=== PATIENT | female | born 2000 | race Caucasian/White ===

== ENCOUNTER → 2022-05-12 13:41 | Outpatient (BNVA) | payer MEDICAID, SELFPAY | PROVIDERS: Visit Provider Emergency Medicine | DX: S60.032A Contusion of left middle finger without damage to nail, initial encounter (principal); W23.0XXA Caught, crushed, jammed, or pinched between moving objects, initial encounter | CPT/HCPCS: 73130 ==

== ENCOUNTER 2022-06-06 19:55 | Emergency (ER) | payer MEDICAID, SELFPAY ==
[2022-06-06 20:00] VITALS: BMI 29.6
[2022-06-06 20:04] VITALS: BP 147/84; PULSE 81; RESP 16; TEMP 36.6; O2SAT 98
--- NOTE | 2022-06-06 20:12 | ECG_ITS ---
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
--- NOTE | 2022-06-06 20:38 | XRR_ITS ---
PROCEDURE INFORMATION: Exam: XR Left Hand Exam date and time: 06/06/2022 8:53 PM Age: 22 years old Clinical indication: Injury or trauma; Fall; Blunt trauma (contusions or hematomas); Hand; Left TECHNIQUE: Imaging protocol: Radiologic exam of the Left hand. Views: 3 or more views. COMPARISON: No relevant prior studies available. FINDINGS: Bones/joints: Osseous structures are intact. Negative for fracture. Joint spaces are preserved. Soft tissues: Normal. XR/XR hand LT min 3V* [id number] IMPRESSION: No acute findings.
--- NOTE | 2022-06-06 20:38 | XRR_ITS ---
PROCEDURE INFORMATION: Exam: XR Chest Exam date and time: 06/06/2022 8:48 PM Age: 22 years old Clinical indication: Angina; Additional info: Cp TECHNIQUE: Imaging protocol: Radiologic exam of the chest. Views: 1 view. COMPARISON: No relevant prior studies available. FINDINGS: Lungs: Unremarkable. No consolidation. Pleural spaces: Unremarkable. No pleural effusion. No pneumothorax. Heart/Mediastinum: Unremarkable. No cardiomegaly. Bones/joints: Unremarkable. XR/XR chest 1V portable [id number] IMPRESSION: No acute findings.
[2022-06-06 20:43] VITALS: BP 152/98; PULSE 72; RESP 16; O2SAT 99
[2022-06-06] MEDS: naproxen 500 mg Tablet PO (20:49)
--- NOTE | 2022-06-06 21:07 | W.ED.CHESTPA ---
HPI - Chest Pain General: Chief Complaint: Chest Pain Stated Complaint: left side chest & arm + throw up blood Time Seen by Provider: 06/06/22 20:06 Source: patient Mode of arrival: ambulatory Limitations: no limitations History of Present Illness: 22-year-old female who states that she has been having left-sided chest pain over the last day. States she had a cough last 2 days the pain in her left chest is sharp in nature states it is worse with movement of her arm and with palpation is improved with rest. She denies any radiation of her pain denies any fever denies any shortness of breath. Denies any vomiting or diarrhea. Associated symptoms: Deny abdominal pain, dyspnea, fever(s), nausea or vomiting Review of Systems Const: Denies: fever(s), chills, body aches or change in appetite Eyes: Denies: blurry vision or eye discomfort ENMT: Denies: throat pain or dental pain Card: Reports: chest pain Resp: Denies: dyspnea GI: Denies: abdominal pain, nausea, vomiting or diarrhea : Denies: dysuria Musc: Denies: neck pain or back pain Skin/Breast: Denies: rash Neuro: Denies: headache(s) Psych: Denies: depression Petey/Lymph: Denies: easy bruising All/Imm: Denies: urticaria PFSH ED PFSH: Medical History (Updated 06/06/22 @ 21:11 by Caryn Nicole MD) No pertinent past medical history Social History Smoking and tobacco status: never smoked Physical Exam Const: COMMON NORMALS: no acute distress, patient oriented x3 and healthy appearing HENMT: COMMON NORMALS: normocephalic and atraumatic HEAD & SCALP: normocephalic and atraumatic Eye: COMMON NORMALS: Equal, round and reactive pupils present and EOMs intact bilaterally PUPIL: Yes Equal, round and reactive pupils present Neck/C-Spine: COMMON NORMALS: full ROM and supple Chest: COMMONS NORMALS: normal inspection of the chest OTHER: Point tender over left chest wall reproduces her pain Resp: COMMON NORMALS: normal respiratory effort, No retractions, No use of accessory muscles and clear to auscultation bilaterally AUSCULTATION: clear to auscultation bilaterally Cardio: COMMON NORMALS: regular rate, regular rhythm and No murmurs present (Cardio) RATE: regular rate RHYTHM: regular rhythm GI: COMMON NORMALS: Normal to inspection, nondistended, normoactive bowel sounds present, Soft to palpation, non-tender and no masses PALPATION: Yes Soft to palpation Extremity: COMMON NORMALS: normal to inspection and full ROM Neuro: COMMON NORMALS: patient oriented x3, moves all extremities and no focal motor deficits Psych: COMMON NORMALS: mental status grossly normal, Normal thought process present and cooperative THOUGHT PROCESS: Normal thought process present Skin: COMMON NORMALS: no rashes or lesions noted and no wounds GENERAL SKIN EXAM: no rashes or lesions noted Course Vital Signs: Vital signs: Vital Signs Temperature 97.9 F 06/06/22 20:04 Pulse Rate 72 06/06/22 20:43 Respiratory Rate 16 06/06/22 20:43 Blood Pressure 152/98 06/06/22 20:43 Pulse Oximetry 99 06/06/22 20:43 Oxygen Delivery Me thod 06/06/22 20:43 MDM - Chest Pain Medical Decision Making Patient presents here with chest pain likely muscle skeletal she is point tender on her left chest wall her EKG and x-ray are both normal. She has no signs of acute coronary syndrome or pulm embolism we will place her on Naprosyn she is to follow-up with PCP and return if worsening. EKG Data EKG 1: I personally reviewed and interpreted this EKG as follows: EKG interpretation date: 06/06/22 EKG interpretation time: 20:12 Interpretation: nsr hr [address] or t wave abnormalities qrs 87 qtc 398 Discharge Plan Discharge Patient Disposition: Home Clinical Impression: Chest pain Qualifiers: Chest pain type: unspecified Qualified Code(s): R07.9 - Chest pain, unspecified Condition: Stable Prescriptions: New naproxen [Naprosyn] 500 mg tablet 500 mg PO BID PRN (Reason: pain) Qty: 20 0RF No Action omeprazole 20 mg capsule,delayed release(DR/EC) 20 mg PO DAILY Discharge Orders: Discharge ED (Routine); Ordered 06/06/22 Ordered By: Caryn Nicole Discharge Diet: Advance as tolerated Discharge Activity: Resume usual activity Patient Instructions: Chest Wall Pain (ED) Coding Level of Care Code ED Electrical Controls Technician for Chg Sidney
[2022-06-06 21:17] VITALS: BP 152/98; PULSE 82; RESP 18; O2SAT 98
== END 2022-06-06 21:18 | disposition home or self-care (01) ==
PROVIDERS: Emergency Provider Emergency Medicine
DX: R07.9 Chest pain, unspecified (principal)
CPT/HCPCS: 71045; 73130; 93005; 93010; 99284

== ENCOUNTER 2022-07-27 06:45 | Outpatient (CLI) | payer MEDICAID, SELFPAY ==
--- NOTE | 2022-07-27 | US_ITS ---
WS: [id number] Complete ABDOMINAL ULTRASOUND HISTORY: ABD PAIN WITH N/V COMPARISON: None available. Liver: 14.7 cm in length. Liver is normal size and echogenicity with no mass or intrahepatic dilatati on. Portal Vein: Normal hepatopetal flow with monophasic waveform. Gallbladder: Normally distended with no gallstones, wall thickening or pericholecystic fluid. Gallbladder wall thickness: 0.2 cm. Pancreas: Not well visualized due to bowel gas. CBD: 0.3 cm. Right kidney: 10.3 cm x 3.8 cm x 3.6 cm. No mass, cortical thickening or hydronephrosis. Left kidney: 10.9 cm x 4.4 cm x 5.0 cm. No mass, cortical thickening or hydronephrosis. Spleen: Normal size and echogenicity. Abdominal aorta and IVC are within normal limits. No ascites. US/US abdomen complete* [id number] IMPRESSION: 1. Pancreas is not well visualized. Otherwise the abdomen ultrasound is negati ve. 2. Normal gallbladder.
== END 2022-07-27 06:46 | disposition home or self-care (01) ==
LOC: RAD 06:46
PROVIDERS: Visit Provider Family Medicine
DX: R10.9 Unspecified abdominal pain (principal); R11.2 Nausea with vomiting, unspecified
CPT/HCPCS: 76700

== ENCOUNTER 2025-08-18 23:16 | Emergency (ER) | payer MEDICAID, SELFPAY ==
[2025-08-18 23:17] VITALS: BP 142/94; PULSE 78; RESP 17; O2SAT 100; BMI 33.0
--- NOTE | 2025-08-18 23:19 | ED_ITS ---
HPI - General Adult 2 General: Chief complaint: Chest Pain Stated complaint: Chest Pain Time Seen by Provider: 08/18/25 23:18 History of Present Illness: 25yo F w/cc of upper abdomen pain for 2 hours prior to coming to the emergency department while eating dinner. She was eating [employer]. She states it is retrosternal, epigastric, sharp, worsened w/deep breathing. She states pain is also in her LUE. It is unclear if pain is exertional. She feels a little nauseated but has not vomited. She reports RUQ/epigastric abdominal pain as well, states she has a h/o gallbladder disease. Patient has not had a fever and denies sore throat, runny nose, cough, hemoptysis, syncope or lower extremity swelling. She does not have a history of DVT/PE. Patient denies dysuria or hematuria. She states she is approximately 7 weeks gestation and currently denies any low abdomen pain/cramping. She states she had slight amount of bleeding earlier today but that has resolved. She's not had diarrhea or blood in stool. She does not take any medications. She does not have a h/o cardiac disease. Related Data Home Medications ?Medication ?Instructions ?Recorded ?Confirmed omeprazole 20 mg capsule,delayed 20 mg PO DAILY 06/06/22 release Previous Rx's ?Medication ?Instructions ?Recorded naproxen 500 mg tablet (Naprosyn) 500 mg PO BID PRN pa in #20 tabs 06/06/22 cephalexin 500 mg capsule 500 mg PO BID 5 days #10 cap s 08/19/25 Allergies Allergy/AdvReac Type Severity Reaction Status Date / Time fluoxetine (From Prozac) Allergy ALGY-Difficulty Verified 08/18/25 23:24 Breathing Penicillins Allergy Unconscious Verified 08/18/25 23:24 [facility] ED 2 [facility]: Medical History (Updated 08/19/25 @ 03:55 by Violeta Taylor MD) No pertinent past medical history Social History Smoking and tobacco/nicotine status: never used tobacco/nicotine Physical Exam 2 Narrative: EXAM NARRATIVE: Vital signs were reviewed. Patient is alert and oriented. Patient is breathing comfortably, no increased WOB or accessory muscle use. SpO2 is above 95% on RA. Patient has clear lungs b/l, no rhonchi, wheezing or crackles. No hypotension or tachycardia. Abdomen is soft, nondistended but tender in the RLQ. +Penn's sign. I am able to appreciate intrauterine w/ HR. Patient is moving all extremities, no deformity or gross injury. No lower extremity edema or asymmetry. Course 2 Vital Signs: Vital signs: Vital Signs Pulse Rate 87 08/19/25 03:30 Respiratory Rate 17 08/18/25 23:17 Blood Pressure 130/82 08/19/25 03:30 Pulse Oximetry 96 08/19/25 03:30 Oxygen Delivery Me thod Room Air 08/19/25 03:30 MDM - General Adult Medical Decision Making 25yo F at appox 7wks gestation w/cc of epigastric/RUQ abd pain/chest pain that started after eating [employer] this evening. She does not have any risk factors for heart disease. Differential diagnosis includes, but is not limited to, pancreatitis, cholecystitis, gastroenteritis, appendicitis, urinary tract infection, pyelonephritis, nephrolithiasis, pneumonia, PE, viral upper respiratory infection ,ACS, other. On initial exam, patient is hemodynamically stable and nontoxic appearing. Patient was evaluated with CBC, CMP, lipase, troponin, D dimer, UA, US gallbladder. Patient was treated for pain with Tylenol, for nausea with IV Reglan. Patient has minimally elevated white blood cell count. She is not anemic. She has a normal troponin with a negative delta and a normal D-dimer. She has adequate kidney function, normal LFTs and normal lipase. UA is consistent with a urinary tract infection. US shows: IMPRESSION: 1. Cholelithiasis with suggested stone impacted in the gallbladder neck. Reportedly positive sonographic Penn's sign. Gallbladder wall measures between 3 and 5 mm (indeterminate for positional artifact). No pericholecystic fluid. Findings are equivocal for acute cholecystitis given imaging appearance. Correlate with patient history/physical exam and laboratory values. If clinically indicated, surgical consultation can be obtained. 2. Findings suggestive of mild diffuse hepatic steatosis. Correlate with LFTs. I presentation is consistent with cholelithiasis and biliary colic and urinary tract infection in first trimester . On reexamination, patient is quite comfortable. Her UTI was treated with Keflex. She was briefly observed due to reported allergy but did not develop an adverse reaction. Patient will require outpatient surgical consultation. She was advised to see his surgeon as soon as possible on an outpatient basis. At this time, she is appropriate for outpatient management and discharge. She was counseled on strict return precautions, advised on supportive care measures at home and discharged in stable condition. Lab Data 08/18/25 23:08 08/18/25 23:08 Radiology Impressions Gallbladder Ultrasound 08/19/25 23:38 IMPRESSION: Unremarkable portal venous spectral waveform with hepatopetal blood flow. No portal venous thrombus. IMPRESSION: 1. Cholelithiasis with suggested stone impacted in the gallbladder neck. Reportedly positive sonographic Penn's sign. Gallbladder wall measures between 3 and 5 mm (indeterminate for positional artifact). No pericholecystic fluid. Findings are equivocal for acute cholecystitis given imaging appearance. Correlate with patient history/physical exam and laboratory values. If clinically indicated, surgical consultation can be obtained. 2. Findings suggestive of mild diffuse hepatic steatosis. Correlate with LFTs. Laboratory Results WBC 14.14 10^3/uL (3.29-11.43) H 08/18/25 23:08 RBC 4.49 10^6/uL (3.85-5.65) 08/18/25 23:08 Hgb 13.60 g/dL (11.27-16.99) 08/18/25 23:08 Hct 40.1 % (36-47) 08/18/25 23:08 MCV 89.3 fl (85-98) 08/18/25 23:08 MCH 30.3 pg (27-33) 08/18/25 23:08 MCHC 33.9 g/dL (30-55) 08/18/25 23:08 RDW 12.3 % (12.1-15.1) 08/18/25 23:08 Plt Count 306 10^3/cmm (157-399) 08/18/25 23:08 MPV 10.1 fL (7.4-10.4) 08/18/25 23:08 Neut % (Auto) 72.7 % 08/18/25 23:08 Lymph % (Auto) 21.5 % 08/18/25 23:08 [place] % (Auto) 4.2 % 08/18/25 23:08 Eos % (Auto) 0.7 % 08/18/25 23:08 Baso % (Auto) 0.4 % 08/18/25 23:08 Neut # (Auto) 10.29 10^3/uL (1.8-7.7) H 08/18/25 23:08 Lymph # (Auto) 3.0 10^3/uL (0.8-4.8) 08/18/25 23:08 [place] # (Auto) 0.6 10^3/uL (0.2-0.9) 08/18/25 23:08 Eos # (Auto) 0.1 10^3/uL (0.0-0.8) 08/18/25 23:08 Baso # (Auto) 0.1 10^3/uL (0.0-0.1) 08/18/25 23:08 Nucleated RBC % (auto) 0 % 08/18/25 23:08 Nucleated RBCs # 0.0 /100WBC 08/18/25 23:08 D-Dimer 0.56 ug/mLFEU (0-0.59) 08/18/25 23:08 Sodium 137 mmol/L (136-145) 08/18/25 23:08 Potassium 3.7 mmol/L (3.5-5.1) 08/18/25 23:08 Chloride 102 mmol/L (98-107) 08/18/25 23:08 Carbon Dioxide 21 mmol/L (22-29) L 08/18/25 23:08 Anion Gap 17.7 (5-19) 08/18/25 23:08 BUN 8 mg/dL (6-20) 08/18/25 23:08 Creatinine 0.5 mg/dL (0.5-0.9) 08/18/25 23:08 GFR Calculation 148.0 mL/min (90-130) H 08/18/25 23:08 Glucose 105 mg/dL (65-115) 08/18/25 23:08 Calculated Osmolality 283 mOsm/kg (285-295) L 08/18/25 23:08 Calcium 9.3 mg/dL (8.5-10.5) 08/18/25 23:08 Total Bilirubin 0.2 mg/dL (0.15-1.2) 08/18/25 23:08 AST 15 U/L (0-32) 08/18/25 23:08 ALT 15 U/L (0-33) 08/18/25 23:08 Alkaline Phosphatase 92 U/L (35-105) 08/18/25 23:08 Troponin T Baseline < 6 ng/L (0-10) 08/18/25 23:08 Troponin T 120 Minute < 6.0 ng/L (0-10) 08/19/25 01:16 Delta Troponin T 0 ABS# (0-10) 08/19/25 01:16 Total Protein 7.0 g/dL (6.6-8.7) 08/18/25 23:08 Albumin 4.7 g/dL (3.5-5.2) 08/18/25 23:08 Globulin 2.3 g/dL (1.3-4.6) 08/18/25 23:08 Lipase 47 U/L (13-60) 08/18/25 23:08 Urine Color Yellow (Yellow) 08/19/25 00:36 Urine Appearance Cloudy (CLEAR) A 08/19/25 00:36 Urine pH 5.5 (5-7) 08/19/25 00:36 Ur Specific [place] 1.033 (1.005-1.030) H 08/19/25 00:36 Urine Protein Trace (Negative) A 08/19/25 00:36 Urine Glucose (UA) Negative (Normal) 08/19/25 00:36 Urine Ketones Trace (Negative) 08/19/25 00:36 Urine Blood Negative (Negative) 08/19/25 00:36 Urine Nitrate Negative (Negative) 08/19/25 00:36 Urine Bilirubin Negative (Negative) 08/19/25 00:36 Urine Urobilinogen 1.0 mg/dL (Negative) 08/19/25 00:36 Ur Leukocyte Esterase Negative (Negative) 08/19/25 00:36 Urine RBC 0-2 /hpf (0-2) 08/19/25 00:36 Urine WBC 21-50 /hpf (0-5) H 08/19/25 00:36 Ur Squamous Epith Cells 0-5 /hpf (0-5) 08/19/25 00:36 Calcium Oxalate Crystal 15-25 /hpf H 08/19/25 00:36 Amorphous Sediment Not Reportable 08/19/25 00:36 Urine Bacteria 1+ /hpf (NONE) H 08/19/25 00:36 Hyaline Casts 0.81 /lpf 08/19/25 00:36 All radiology interpretation(s) finalized by discharge EKG Data EKG 1: Interpretation: Normal sinus rhythm, heart rate of 68, normal axis, normal intervals, no evidence of ST segment elevation. Computer generated interpretation: Gallbladder Ultrasound 08/19/25 23:38 IMPRESSION: Unremarkable portal venous spectral waveform with hepatopetal blood flow. No portal venous thrombus. IMPRESSION: 1. Cholelithiasis with suggested stone impacted in the gallbladder neck. Reportedly positive sonographic Penn's sign. Gallbladder wall measures between 3 and 5 mm (indeterminate for positional artifact). No pericholecystic fluid. Findings are equivocal for acute cholecystitis given imaging appearance. Correlate with patient history/physical exam and laboratory values. If clinically indicated, surgical consultation can be obtained. 2. Findings suggestive of mild diffuse hepatic steatosis. Correlate with LFTs. EKG 2: Interpretation: Normal sinus rhythm with a heart rate of 61, normal axis, normal intervals, no evidence of ST segment elevation, ischemic change or evolution from previous EKG. Computer generated interpretation: Gallbladder Ultrasound 08/19/25 23:38 IMPRESSION: Unremarkable portal venous spectral waveform with hepatopetal blood flow. No portal venous thrombus. IMPRESSION: 1. Cholelithiasis with suggested stone impacted in the gallbladder neck. Reportedly positive sonographic Penn's sign. Gallbladder wall measures between 3 and 5 mm (indeterminate for positional artifact). No pericholecystic fluid. Findings are equivocal for acute cholecystitis given imaging appearance. Correlate with patient history/physical exam and laboratory values. If clinically indicated, surgical consultation can be obtained. 2. Findings suggestive of mild diffuse hepatic steatosis. Correlate with LFTs. Discharge Plan Discharge Patient Disposition: Home Clinical Impression: Biliary colic Cholelithiasis Qualifiers: Cholelithiasis location: gallbladder Cholecystitis presence: without cholecystitis Biliary obstruction: without biliary obstruction Qualified Code(s): K80.20 - Calculus of gallbladder without cholecystitis without obstruction Urinary tract infection Qualifiers: Urinary tract infection type: acute cystitis Hematuria presence: without hematuria Qualified Code(s): N30.00 - Acute cystitis without hematuria Qualifiers: Weeks of gestation: less than 8 weeks Qualified Code(s): Z3A.01 - Less than 8 weeks gestation of Condition: Stable Prescriptions: New cephalexin 500 mg capsule 500 mg PO BID 5 Days Qty: 10 0RF No Action omeprazole 20 mg capsule,delayed release(DR/EC) 20 mg PO DAILY Naprosyn 500 mg tablet 500 mg PO BID PRN (Reason: pain) Qty: 20 0RF Discharge Orders: Discharge ED (Routine); Ordered 08/19/25 Ordered By: Violeta Taylor Patient Instructions: Abdominal Pain (ED), Opioid Safety, Pain Management, Patient Portal & Dali Instructions Activity Restrictions/Additional Instructions: For pain, you may take 500 to 1000 mg of Tylenol every 6-8 hours. For nausea and vomiting during , you may take 25 mg of doxylamine and 25 mg of vitamin B6, both medications you can get [id number], in combination at bedtime. Please start your antibiotics as prescribed for urinary tract infection. If you are not taking it already, please take vitamin to prevent neural tube defects. Continue to monitor your condition very closely at home. If your condition worsens or if new concerns arise, please return immediately to the emergency department. Specifically, if you experience a fever, severe pain in your upper abdomen or right side of your abdomen, you have severe nausea and vomiting and are unable to keep food and drink down, you are unable to tolerate pain at home, please return immediately to the emergency department. Please follow-up with the surgeon on an outpatient basis to discuss having gallbladder surgery. Print Language: Solomon Islander Coding Level of Care Code ED Commercial Construction Superintendent for Tamar Little
[2025-08-18 23:23] VITALS: BP 132/90; PULSE 69; O2SAT 100
--- NOTE | 2025-08-18 23:38 | ECG_ITS ---
[facility] Test Date: 2025-08-19 Pat Name: Gianna Archer Department: Room: Gender: Female Invoice Classification Clerk: : 2000 Requested By: Violeta Taylor Order Number: [id number] Timi MD: Shubahm Cormier M.D. Measurements Intervals [place] Rate: 61 P: 36 MA: 157 QRS: 33 QRSD: 85 T: 23 QT: 394 QTc: 400 Interpretive Statements SINUS RHYTHM NONSPECIFIC T-WAVE ABNORMALITY Compared to ECG 06/06/2022 20:12:21 T-wave abnormality now present Electronically Signed On 08-19-2025 21:56:11 MUSHROOM GROWING SUPERVISOR by Shubham Cormier M.D. [id number]
--- OUTSIDE RECORDS SUMMARY | 2025-08-18 23:38 | XMS_ITS | Encounter Summary ---
Author Organization [facility] Address [address] [place] [address] Care Team Providers Care Instructor Decorating Name Role Phone Unavailable Primary Care Provider Unavailabl e Encounter Details Date Type Department Care Team (Latest Contact Info) Description 10/28/1999 Outpatient Historical [facility] Jamari Thomason MD [address] [place] [address] Unspecified otitis media (Primary Dx); Attention to dressings and sutures Social History Tobacco Use Types Packs/Day Years Used Date Smoking Tobacco: Never Assessed Comments Unknown Sex and Gender Information Value Date Recorded Sex Assigned at Not on file 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
--- OUTSIDE RECORDS SUMMARY | 2025-08-18 23:38 | XMS_ITS | Encounter Summary ---
Author Organization [facility] Address [address] [place] [address] Care Team Providers Care Ship'S Cook Name Role Phone Unavailable Primary Care Provider Unavailabl e Encounter Details Date Type Department Care Team (Latest Contact Info) Description 12/27/2001 Outpatient Historical [facility] Jamari Thomason MD [address] [place] [address] ACUTE URI NOS (Primary Dx); VIRAL EXANTHEMATA NOS Social History Tobacco Use Types Packs/Day Years Used Date Smoking Tobacco: Never Assessed Comments Unknown Sex and Gender Information Value Date Recorded Sex Assigned at Not on file 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
--- OUTSIDE RECORDS SUMMARY | 2025-08-18 23:38 | XMS_ITS | Encounter Summary ---
Author Organization [facility] Address [address] [place] [address] Care Team Providers Care Prorate Clerk Name Role Phone Unavailable Primary Care Provider Unavailabl e Encounter Details Date Type Department Care Team (Latest Contact Info) Description 07/04/2000 Outpatient Historical [facility] Jamari Thomason MD [address] [place] [address] Bronchitis, not specified as acute or chronic (Primary Dx) Social History Tobacco Use Types Packs/Day Years Used Date Smoking Tobacco: Never Assessed Comments Unknown Sex and Gender Information Value Date Recorded Sex Assigned at Not on file 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
--- OUTSIDE RECORDS SUMMARY | 2025-08-18 23:38 | XMS_ITS | Encounter Summary ---
Author Organization [facility] Address [address] [place] [address] Care Team Providers Care Parish Nurse Name Role Phone Unavailable Primary Care Provider Unavailabl e Encounter Details Date Type Department Care Team (Latest Contact Info) Description 02/04/2002 Outpatient Historical [facility] Jamari Thomason MD [address] [place] [address] DYSURIA (Primary Dx); FOREIGN BODY FOOT & TOE; URIN TRACT INFECTION NOS Social History Tobacco Use Types Packs/Day Years Used Date Smoking Tobacco: Never Assessed Comments Unknown Sex and Gender Information Value Date Recorded Sex Assigned at Not on file 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
--- OUTSIDE RECORDS SUMMARY | 2025-08-18 23:38 | XMS_ITS | Encounter Summary ---
Author Organization [employer] [facility] Address [address] [place] [address] Care Team Providers Care Mail Truck Driver Name Role Phone Unavailable Primary Care Provider Unavailabl e Encounter Details Date Type Department Care Team (Latest Contact Info) Description 12/26/2000 Outpatient Historical HIS [facility] Jamari Thomason MD [address] [place] [address] Dermatitis due to food taken internally (Primary Dx) Social History Tobacco Use Types Packs/Day Years Used Date Smoking Tobacco: Never Assessed Comments Unknown Sex and Gender Information Value Date Recorded Sex Assigned at Not on file Legal Sex Female 6:00 AM MEDICAL ASSISTANT PRN Gender Identity Not on file Sexual Orientation Not on file documented as of this encounter Plan of Treatment Not on file documented as of this encounter Visit Diagnoses Diagnosis Dermatitis due to food taken internally- Primary documented in this encounter
--- OUTSIDE RECORDS SUMMARY | 2025-08-18 23:38 | XMS_ITS | Encounter Summary ---
Author Organization [employer] [facility] Address [address] [place] [address] Care Team Providers Care Load Checker Name Role Phone Unavailable Primary Care Provider Unavailabl e Encounter Details Date Type Department Care Team (Latest Contact Info) Description 06/28/1999 Outpatient Historical HIS [facility] Yahir Clements, Johan Scott MD [address] [place] [id number] Bronchitis, not specified as acute or chronic (Primary Dx) Social History Tobacco Use Types Packs/Day Years Used Date Smoking Tobacco: Never Assessed Comments Unknown Sex and Gender Information Value Date Recorded Sex Assigned at Not on file Legal Sex Female 6:00 AM CORN COOKER Gender Identity Not on file Sexual Orientation Not on file documented as of this encounter Plan of Treatment Not on file documented as of this encounter Visit Diagnoses Diagnosis Bronchitis, not specified as acute or chronic- Primary documented in this encounter
--- OUTSIDE RECORDS SUMMARY | 2025-08-18 23:38 | XMS_ITS | Clinical Summary ---
Author Organization [facility] Address [address] [facility] Attn: Epic Prelude ADT [place] [address] Care Team Providers Care Subsurface Augmentee Elint Operator Name Role Phone Unavailable Primary Care Provider Unavailabl e Immunizations Immunization Administration Dates Next Due (ADACEL/BOOSTRIX)(10 YR UP) TDAP VACCINE, 0.5ML, IM 05/24/2010 (M-M-R II/PRIORIX)(12 MO UP) MEASLES, MUMPS AND RUBELLA VIRUS VACCINE, 0.5 ML IM/SUBCUT 10/25/2002,07/03/2000 (VARIVAX)(12 MOS UP)VARICELL A VIRUS VACCINE (PF) 0.5 ML, SUB CUT 01/03/2003 Dt Dtp Dtap Vaccine 10/25/2002, 0,03/25/1999,1998,1998,1998 HIB, Unspecified Formulation 07/03/2000, 03/25/1999,1998,1997,1998 Hepatitis A Vaccine 10/25/2002,03/25/1999 Hepatitis B Vaccine 03/25/1999,1998,1997 IPV/OPV 07/03/2000, 9,1998,1997 Social History Tobacco Use Types Packs/Day Years Used Date Smoking Tobacco: Never Assessed Comments Unknown Sex and Gender Information Value Date Recorded Sex Assigned at Not on file Legal Sex Female 6:00 AM JUNIOR ACCOUNTANT BOOKKEEPER Gender Identity Not on file Sexual Orientation Not on file Plan of Treatment Health Maintenance Due Date Last Done Comments CERVICAL CANCER SCREENING 2019 HPV/Cotest (21-29) 2019 PAP SMEAR 2019 DTAP/TDAP/TD VACCINES (7 - T d or Tdap) 05/24/2020 05/24/2010, 10/25/2002, 07/03/2000, Additional history exists INFLUENZA VACCINE (#1) 2025 HPV VACCINES (1 - 3-dose SCD M series) 2025 HEPATITIS B VACCINES Completed 03/25/1999, 1998, 1998
--- OUTSIDE RECORDS SUMMARY | 2025-08-18 23:38 | XMS_ITS | Encounter Summary ---
Author Organization [facility] Address [address] [place] [address] Care Team Providers Care Frame Bander Name Role Phone Unavailable Primary Care Provider Unavailabl e Encounter Details Date Type Department Care Team (Latest Contact Info) Description 01/09/2001 Outpatient Historical HIS [facility] Jamari Thomason MD [address] [place] [address] Urinary tract infection, site not specified (Primary Dx) Social History Tobacco Use Types Packs/Day Years Used Date Smoking Tobacco: Never Assessed Comments Unknown Sex and Gender Information Value Date Recorded Sex Assigned at Not on file Legal Sex Female 6:00 AM EMPLOYMENT PROGRAM REPRESENTATIVE Gender Identity Not on file Sexual Orientation Not on file documented as of this encounter Plan of Treatment Not on file documented as of this encounter Visit Diagnoses Diagnosis Urinary tract infection, site not specified- Primary documented in this encounter
--- OUTSIDE RECORDS SUMMARY | 2025-08-18 23:38 | XMS_ITS | Encounter Summary ---
Author Organization [facility] Address [address] [place] [address] Care Team Providers Care Debone Supervisor Name Role Phone Unavailable Primary Care Provider Unavailabl e Encounter Details Date Type Department Care Team (Latest Contact Info) Description 12/06/1999 Outpatient Historical HIS [facility] Jamari Thomason MD [address] [place] [address] Acute upper respiratory infections of unspecified site (Primary Dx); Other and unspecified noninfectious gastroenteritis and colitis(558.9) Social History Tobacco Use Types Packs/Day Years Used Date Smoking Tobacco: Never Assessed Comments Unknown Sex and Gender Information Value Date Recorded Sex Assigned at Not on file Legal Sex Female 6:00 AM LOSS PREVENTION LEAD Gender Identity Not on file Sexual Orientation Not on file documented as of this encounter Plan of Treatment Not on file documented as of this encounter Visit Diagnoses Diagnosis Acute upper respiratory infections of unspecified site- Primary Other and unspecified noninfectious gastroenteritis and colitis(558.9) Other and unspecified noninfectious gastroenteritis and colitis documented in this encounter
--- OUTSIDE RECORDS SUMMARY | 2025-08-18 23:38 | XMS_ITS | Encounter Summary ---
Author Organization [facility] Address [address] [place] [address] Care Team Providers Care Fuel Agent Name Role Phone Unavailable Primary Care Provider Unavailabl e Encounter Details Date Type Department Care Team (Latest Contact Info) Description 01/01/2001 Outpatient Historical HIS [facility] Jamari Thomason MD [address] [place] [address] Other and unspecified noninfectious gastroenteritis and colitis(558.9) (Primary Dx) Social History Tobacco Use Types Packs/Day Years Used Date Smoking Tobacco: Never Assessed Comments Unknown Sex and Gender Information Value Date Recorded Sex Assigned at Not on file Legal Sex Female 6:00 AM FITTING ROOM ATTENDANT Gender Identity Not on file Sexual Orientation Not on file documented as of this encounter Plan of Treatment Not on file documented as of this encounter Visit Diagnoses Diagnosis Other and unspecified noninfectious gastroenteritis and colitis(558.9)- Primary Other and unspecified noninfectious gastroenteritis and colitis documented in this encounter
--- OUTSIDE RECORDS SUMMARY | 2025-08-18 23:38 | XMS_ITS | Encounter Summary ---
Author Organization [employer] [facility] Address [address] [place] [address] Care Team Providers Care Secretary Bookkeeper Name Role Phone Unavailable Primary Care Provider Unavailabl e Encounter Details Date Type Department Care Team (Latest Contact Info) Description 05/11/1999 Outpatient Historical HIS [facility] Jamari Thomason MD [address] [place] [address] Other, multiple, and unspecified sites, insect bite, nonvenomous, without mention of infection(919.4) (Primary Dx) Social History Tobacco Use Types Packs/Day Years Used Date Smoking Tobacco: Never Assessed Comments Unknown Sex and Gender Information Value Date Recorded Sex Assigned at Not on file Legal Sex Female 6:00 AM CONTINUOUS DRIER OPERATOR Gender Identity Not on file Sexual Orientation Not on file documented as of this encounter Plan of Treatment Not on file documented as of this encounter Visit Diagnoses Diagnosis Other, multiple, and unspecified sites, insect bite, nonvenomous, without mention of infection(919.4)- Primary Other, multiple, and unspecified sites, insect bite, nonvenomous, without mention of infection documented in this encounter
--- OUTSIDE RECORDS SUMMARY | 2025-08-18 23:38 | XMS_ITS | Encounter Summary ---
Author Organization [facility] Address [address] [place] [address] Care Team Providers Care Hogshead Builder Name Role Phone Unavailable Primary Care Provider Unavailabl e Encounter Details Date Type Department Care Team (Latest Contact Info) Description 08/06/1999 Outpatient Historical HIS [facility] Jamari Thomason MD [address] [place] [address] Unspecified otitis media (Primary Dx); Acute upper respiratory infections of unspecified site Social History Tobacco Use Types Packs/Day Years Used Date Smoking Tobacco: Never Assessed Comments Unknown Sex and Gender Information Value Date Recorded Sex Assigned at Not on file Legal Sex Female 6:00 AM GUN SEALING MACHINE OPERATOR Gender Identity Not on file Sexual Orientation Not on file documented as of this encounter Plan of Treatment Not on file documented as of this encounter Visit Diagnoses Diagnosis Unspecified otitis media- Primary Acute upper respiratory infections of unspecified site documented in this encounter
--- OUTSIDE RECORDS SUMMARY | 2025-08-18 23:38 | XMS_ITS | Encounter Summary ---
Author Organization [facility] Address [address] [place] [address] Care Team Providers Care Neuropsychology Director Name Role Phone Unavailable Primary Care Provider Unavailabl e Encounter Details Date Type Department Care Team (Latest Contact Info) Description 02/11/2002 Outpatient Historical HIS [facility] Jamari Thomason MD [address] [place] [address] NONINFEC GASTROENTERIT NEC (Primary Dx) Social History Tobacco Use Types Packs/Day Years Used Date Smoking Tobacco: Never Assessed Comments Unknown Sex and Gender Information Value Date Recorded Sex Assigned at Not on file Legal Sex Female 6:00 AM SUPERVISOR FILES Gender Identity Not on file Sexual Orientation Not on file documented as of this encounter Plan of Treatment Not on file documented as of this encounter Visit Diagnoses Diagnosis Other and unspecified noninfectious gastroenteritis and colitis(558.9)- Primary Other and unspecified noninfectious gastroenteritis and colitis documented in this encounter
--- OUTSIDE RECORDS SUMMARY | 2025-08-18 23:38 | XMS_ITS | Encounter Summary ---
Author Organization [facility] [employer] [facility] Address [address] [facility] Attn: Epic Prel[place] [address] Care Team Providers Care Traveling Electrician Name Role Phone Unavailable Primary Care Provider Unavailabl e Encounter Details Date Type Department Care Team (Late st Contact Info) Description 02/04/2002 Outpatient Historical Jamari Thomason MD [address] [place] [address] Social History Tobacco Use Types Packs/Day Years Used Date Smoking Tobacco: Never Assessed Comments Unknown Sex and Gender Information Value Date Recorded Sex Assigned at Not on file Legal Sex Female 6:00 AM INTERNET SALES ASSOCIATE Gender Identity Not on file Sexual Orientation Not on file documented as of this encounter Plan of Treatment Not on file documented as of this encounter Visit Diagnoses Not on filedocumented in this encounter
--- OUTSIDE RECORDS SUMMARY | 2025-08-18 23:39 | XMS_ITS | Encounter Summary ---
Author Organization [employer] [facility] Address [address] [place] [address] Care Team Providers Care Clothes Model Name Role Phone Unavailable Primary Care Provider Unavailabl e Encounter Details Date Type Department Care Team (Latest Contact Info) Description 1998 Outpatient Historical HIS [facility] Jamari Thomason MD [address] [place] [address] Bronchitis, not specified as acute or chronic (Primary Dx) Social History Tobacco Use Types Packs/Day Years Used Date Smoking Tobacco: Never Assessed Comments Unknown Sex and Gender Information Value Date Recorded Sex Assigned at Not on file Legal Sex Female 6:00 AM HOG CONFINEMENT SYSTEM MANAGER Gender Identity Not on file Sexual Orientation Not on file documented as of this encounter Plan of Treatment Not on file documented as of this encounter Visit Diagnoses Diagnosis Bronchitis, not specified as acute or chronic- Primary documented in this encounter
--- OUTSIDE RECORDS SUMMARY | 2025-08-18 23:39 | XMS_ITS | Encounter Summary ---
Author Organization [employer] [facility] Address [address] [place] [address] Care Team Providers Care Clinical Care Leader Name Role Phone Unavailable Primary Care Provider Unavailabl e Encounter Details Date Type Department Care Team (Latest Contact Info) Description 09/18/2001 Outpatient Historical HIS [facility] Jamari Thomason MD [address] [place] [address] BRONCHITIS NOS (Primary Dx); DIAPER OR NAPKIN RASH Social History Tobacco Use Types Packs/Day Years Used Date Smoking Tobacco: Never Assessed Comments Unknown Sex and Gender Information Value Date Recorded Sex Assigned at Not on file Legal Sex Female 6:00 AM SEASONER Gender Identity Not on file Sexual Orientation Not on file documented as of this encounter Plan of Treatment Not on file documented as of this encounter Visit Diagnoses Diagnosis Bronchitis, not specified as acute or chronic- Primary Diaper or napkin rash documented in this encounter
--- OUTSIDE RECORDS SUMMARY | 2025-08-18 23:39 | XMS_ITS | Encounter Summary ---
Author Organization [facility] Address [address] [place] [address] Care Team Providers Care Brass Buffer Name Role Phone Unavailable Primary Care Provider Unavailabl e Encounter Details Date Type Department Care Team (Latest Contact Info) Description 01/21/1999 Outpatient Historical HIS [facility] Jamari Thomason MD [address] [place] [address] Unspecified otitis media (Primary Dx) Social History Tobacco Use Types Packs/Day Years Used Date Smoking Tobacco: Never Assessed Comments Unknown Sex and Gender Information Value Date Recorded Sex Assigned at Not on file Legal Sex Female 6:00 AM STEWARDING SUPERVISOR Gender Identity Not on file Sexual Orientation Not on file documented as of this encounter Plan of Treatment Not on file documented as of this encounter Visit Diagnoses Diagnosis Unspecified otitis media- Primary documented in this encounter
--- OUTSIDE RECORDS SUMMARY | 2025-08-18 23:39 | XMS_ITS | Encounter Summary ---
Author Organization [facility] Address [address] [place] [address] Care Team Providers Care Hand Laminator Name Role Phone Unavailable Primary Care Provider Unavailabl e Encounter Details Date Type Department Care Team (Latest Contact Info) Description 12/18/2001 Outpatient Historical HIS [facility] Jamari Thomason MD [address] [place] [address] BRONCHITIS NOS (Primary Dx) Social History Tobacco Use Types Packs/Day Years Used Date Smoking Tobacco: Never Assessed Comments Unknown Sex and Gender Information Value Date Recorded Sex Assigned at Not on file Legal Sex Female 6:00 AM APPLICATION SERVICES MANAGER Gender Identity Not on file Sexual Orientation Not on file documented as of this encounter Plan of Treatment Not on file documented as of this encounter Visit Diagnoses Diagnosis Bronchitis, not specified as acute or chronic- Primary documented in this encounter
[2025-08-18 23:53] VITALS: BP 133/74; PULSE 74; O2SAT 98
[2025-08-19] VITALS (9 sets, daily range): BP systolic 96–145; BP diastolic 44–87; PULSE 60–87; O2SAT 96–100
[2025-08-19 00:43] LABS: Hematocrit 40.1 % (36-47); Hemoglobin 13.60 g/dL (11.27-16.99); Mean Corpuscular HGB Conc 33.9 g/dL (30-55); Mean Corpuscular Hemoglobin 30.3 pg (27-33); Mean Corpuscular Volume 89.3 fl (85-98); Nucleated Red Blood Cells % 0 %; Platelet Count 306 10^3/cmm (157-399); Red Blood Count 4.49 10^6/uL (3.85-5.65); White Blood Count 14.14 10^3/uL (3.29-11.43)
[2025-08-19 01:00] LABS: Troponin(5th) Baseline < 6 ng/L (0-10)
[2025-08-19 01:02] LABS: Glucose Urine UA Negative (Normal); Nitrate Urine Negative (Negative)
[2025-08-19 01:06] LABS: Add Urine Microscopic? YES
[2025-08-19 01:19] LABS: Alanine Aminotransferase 15 U/L (0-33); Albumin Level 4.7 g/dL (3.5-5.2); Alkaline Phosphatase 92 U/L (35-105); Anion Gap 17.7 (5-19); Aspartate Amino Transferase 15 U/L (0-32); Blood Urea Nitrogen 8 mg/dL (6-20); Calcium 9.3 mg/dL (8.5-10.5); Carbon Dioxide 21 mmol/L (22-29); Chloride 102 mmol/L (98-107); Creatinine Clr Calc Pharmacy 154.6480; Globulin 2.3 g/dL (1.3-4.6); Glucose 105 mg/dL (65-115); Lipase 47 U/L (13-60); Osmolality Calculated 283 mOsm/kg (285-295); Potassium 3.7 mmol/L (3.5-5.1); Sodium 137 mmol/L (136-145); Total Protein 7.0 g/dL (6.6-8.7)
[2025-08-19 01:20] LABS: Specific Gravity, Urine 1.033 (1.005-1.030); UA Slide Review UA Slide Review Perf
--- NOTE | 2025-08-19 01:38 | ECG_ITS ---
[facility] Test Date: 2025-08-18 Pat Name: Gianna Archer Department: Room: Gender: Female Workforce Development Program Director: : 2000 Requested By: Violeta Taylor Order Number: [id number] Timi MD: Shubham Cormier M.D. Measurements Intervals [place] Rate: 68 P: 41 NC: 160 QRS: 23 QRSD: 90 T: 20 QT: 388 QTc: 413 Interpretive Statements SINUS RHYTHM Compared to ECG 06/06/2022 20:12:21 No significant changes Electronically Signed On 08-19-2025 22:20:54 READING EFFICIENCY COURSE DIRECTOR by Shubham Cormier M.D. [email or web address] [id number]
[2025-08-19 01:39] LABS: Troponin 5 2HR < 6.0 ng/L (0-10); Troponin 5 2HR Delta 0 ABS# (0-10)
[2025-08-19] MEDS: metoclopramide 5 mg/mL SDV 2 mL 10 MG IVP (02:56)
--- NOTE | 2025-08-19 08:06 | SUR.HOLD ---
Sent to General Surgery- for referral
--- NOTE | 2025-08-19 23:38 | USR_ITS ---
PROCEDURE INFORMATION: Exam: US Duplex Artery or Vein of the Abdominal and/or Reproductive Organs, Limited Exam date and time: 08/19/2025 12:41 AM Age: 25 years old Clinical indication: Abdominal pain; Acute; Additional info: Ruq pain TECHNIQUE: Imaging protocol: Real-time duplex ultrasound scan of the arterial or venous flow of the abdomen and/or reproductive organs, with color Doppler flow and spectral waveform analysis with image documentation. Exam focused on the region of clinical interest. Duplex exam was performed to evaluate for vascular conditions. COMPARISON: US abdomen complete* [id number] 07/27/2022 6:56 AM FINDINGS: Portal venous: Spectral sonography demonstrates a patent portal vein with smooth diastolic flow and gentle undulation, likely representing mild respiratory phasicity. Blood flow is hepatopetal in orientation. No evidence of occlusive thrombus. No portal venous abnormality identified. Velocity measures 39 cm/sec, within normal limits. PROCEDURE INFORMATION: Exam: US Abdomen, Limited; Right Upper Quadrant Exam date and time: 08/19/2025 12:41 AM Age: 25 years old Clinical indication: Abdominal pain; Acute; Additional info: Ruq pain TECHNIQUE: Imaging protocol: Real time ultrasound of the abdomen with image documentation. Limited exam focused on the right upper quadrant. COMPARISON: US abdomen complete* [id number] 07/27/2022 6:56 AM FINDINGS: Liver: Increased hepatic echogenicity suggestive of underlying hepatic steatosis/parenchymal change. No surface nodularity. No solid lesions. Gallbladder: Cholelithiasis is present. The gallbladder wall measures up to 3 -5 mm. (Electrical High Tension Tester measures up to 5 mm thickness, which may be artifactual secondary to oblique positioning). No pericholecystic fluid. Of note, 1 stone appears to be impacted in the gallbladder neck. A positive Penn's sign was reported by the generation technician. Biliary ducts: The common bile duct measures up to 3 -4 mm, within normal limits. No intra or extrahepatic bile duct dilatation is noted. Pancreas: The imaged pancreas is within normal limits. No ductal dilatation is noted. Right kidney: The right kidney measures 5.2 x 5.8 x 12.0 cm. Cortical thickness measures 1.9 cm, within normal limits. Normal renal echogenicity and echotexture. Normal cortical thickness. No hydronephrosis, nephrolithiasis, or solid renal mass is noted. Aorta: The imaged aorta is patent and nonaneurysmal. Intraperitoneal space: No ascites is present. Other findings: The findings were verbally communicated via telephone conference with Violeta Taylor at 1:18 AM CLOTH FINISHER on 08/19/2025. The findings were acknowledged and understood. US/US gall bladder [id number] IMPRESSION: Unremarkable portal venous spectral waveform with hepatopetal blood flow. No portal venous thrombus. IMPRESSION: 1. Cholelithiasis with suggested stone impacted in the gallbladder neck. Reportedly positive sonographic Penn's sign. Gallbladder wall measures between 3 and 5 mm (indeterminate for positional artifact). No pericholecystic fluid. Findings are equivocal for acute cholecystitis given imaging appearance. Correlate with patient history/physical exam and laboratory values. If clinically indicated, surgical consultation can be obtained. 2. Findings suggestive of mild diffuse hepatic steatosis. Correlate with LFTs.
== END 2025-08-19 04:35 | disposition home or self-care (01) ==
PROVIDERS: Emergency Provider Emergency Medicine
DX: O99.611 Diseases of the digestive system complicating pregnancy, first trimester (principal); K80.70 Calculus of gallbladder and bile duct without cholecystitis without obstruction; N30.00 Acute cystitis without hematuria; Z3A.01 Less than 8 weeks gestation of pregnancy
CPT/HCPCS: 36415; 76705; 80053; 81001; 83690; 84484; 85025; 85378; 87077; 87086; 87186; 93005; 96374; 99284; J2765; J9999

== ENCOUNTER 2025-09-15 19:42 | Emergency (ER) | payer MEDICAID, SELFPAY ==
[2025-09-15 19:55] VITALS: BP 150/80; PULSE 89; TEMP 36.8; O2SAT 99; BMI 35.7
--- OUTSIDE RECORDS SUMMARY | 2025-09-15 19:55 | XMS_ITS | Encounter Summary ---
Author Organization [facility] Address [address] Pakn: Epic Prel[place] [address] Care Team Providers Care Door Cutter Name Role Phone Unavailable Primary Care Provider Unavailabl e Encounter Details Date Type Department Care Team (Late st Contact Info) Description 02/04/2002 Outpatient Historical Jamari Thomason MD [address] [place] [address] Social History Tobacco Use Types Packs/Day Years Used Date Smoking Tobacco: Never Assessed Comments Unknown Sex and Gender Information Value Date Recorded Sex Assigned at Not on file Legal Sex Female 6:00 AM CANE STRIPPER Gender Identity Not on file Sexual Orientation Not on file documented as of this encounter Plan of Treatment Not on file documented as of this encounter Visit Diagnoses Not on filedocumented in this encounter
--- OUTSIDE RECORDS SUMMARY | 2025-09-15 19:55 | XMS_ITS | Encounter Summary ---
Author Organization [employer] [facility] Address [address] [place] [address] Care Team Providers Care Consulting Intern Name Role Phone Unavailable Primary Care Provider Unavailabl e Encounter Details Date Type Department Care Team (Latest Contact Info) Description 10/28/1999 Outpatient Historical HIS 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
--- OUTSIDE RECORDS SUMMARY | 2025-09-15 19:55 | XMS_ITS | Encounter Summary ---
Author Organization [employer] [facility] Address [address] [place] [address] Care Team Providers Care Supervisor Pumping Station Name Role Phone Unavailable Primary Care Provider Unavailabl e Encounter Details Date Type Department Care Team (Latest Contact Info) Description 08/06/1999 Outpatient Historical HIS [facility] Jamari Thomason MD [address] [place] [address] Unspecified otitis media (Primary Dx); Acute upper respiratory infections of unspecified site Social History Tobacco Use Types Packs/Day Years Used Date Smoking Tobacco: Never Assessed Comments Unknown Sex and Gender Information Value Date Recorded Sex Assigned at Not on file Legal Sex Female 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
--- OUTSIDE RECORDS SUMMARY | 2025-09-15 19:55 | XMS_ITS | Encounter Summary ---
Author Organization [employer] [facility] Address [address] [place] [address] Care Team Providers Care Machine Operator Farmworker Name Role Phone Unavailable Primary Care Provider Unavailabl e Encounter Details Date Type Department Care Team (Latest Contact Info) Description 06/28/1999 Outpatient Historical HIS [facility] Yahir Clements, Johan Scott MD [address] [place] [address] Bronchitis, not specified as acute or chronic (Primary Dx) Social History Tobacco Use Types Packs/Day Years Used Date Smoking Tobacco: Never Assessed Comments Unknown Sex and Gender Information Value Date Recorded Sex Assigned at Not on file Legal Sex Female 6:00 AM GEAR GRINDING MACHINE OPERATOR Gender Identity Not on file Sexual Orientation Not on file documented as of this encounter Plan of Treatment Not on file documented as of this encounter Visit Diagnoses Diagnosis Bronchitis, not specified as acute or chronic- Primary documented in this encounter
--- OUTSIDE RECORDS SUMMARY | 2025-09-15 19:55 | XMS_ITS | Encounter Summary ---
Author Organization [employer] [facility] Address [address] [place] [address] Care Team Providers Care Practical Nursing Faculty Name Role Phone Unavailable Primary Care Provider Unavailabl e Encounter Details Date Type Department Care Team (Latest Contact Info) Description 12/06/1999 Outpatient Historical HIS [facility] Jamari Thomason MD [address] [place] [address] Acute upper respiratory infections of unspecified site (Primary Dx); Other and unspecified noninfectious gastroenteritis and colitis(558.9) Social History Tobacco Use Types Packs/Day Years Used Date Smoking Tobacco: Never Assessed Comments Unknown Sex and Gender Information Value Date Recorded Sex Assigned at Not on file 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
--- OUTSIDE RECORDS SUMMARY | 2025-09-15 19:55 | XMS_ITS | Encounter Summary ---
Author Organization [email or web address] [facility] Address [address] [place] [address] Care Team Providers Care Wheel Of Fortune Dealer Name Role Phone Unavailable Primary Care Provider Unavailabl e Encounter Details Date Type Department Care Team (Latest Contact Info) Description 12/27/2001 Outpatient Historical HIS [facility] Jamari Thomason MD [address] [place] [address] ACUTE URI NOS (Primary Dx); VIRAL EXANTHEMATA NOS Social History Tobacco Use Types Packs/Day Years Used Date Smoking Tobacco: Never Assessed Comments Unknown Sex and Gender Information Value Date Recorded Sex Assigned at Not on file 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
--- OUTSIDE RECORDS SUMMARY | 2025-09-15 19:55 | XMS_ITS | Encounter Summary ---
Author Organization [employer] [facility] Address [address] [place] [address] Care Team Providers Care Regulatory Scientist Name Role Phone Unavailable Primary Care Provider Unavailabl e Encounter Details Date Type Department Care Team (Latest Contact Info) Description 02/11/2002 Outpatient Historical HIS [facility] Jamari Thomason MD [address] [place] [address] NONINFEC GASTROENTERIT NEC (Primary Dx) Social History Tobacco Use Types Packs/Day Years Used Date Smoking Tobacco: Never Assessed Comments Unknown Sex and Gender Information Value Date Recorded Sex Assigned at Not on file 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
--- OUTSIDE RECORDS SUMMARY | 2025-09-15 19:55 | XMS_ITS | Clinical Summary ---
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
--- OUTSIDE RECORDS SUMMARY | 2025-09-15 19:56 | XMS_ITS | Encounter Summary ---
Author Organization [employer] [facility] Address [address] [place] [address] Care Team Providers Care Family Protection Specialist Name Role Phone Unavailable Primary Care Provider Unavailabl e Encounter Details Date Type Department Care Team (Latest Contact Info) Description 12/26/2000 Outpatient Historical HIS [facility] Jamari Thomason MD [address] [place] [address] Dermatitis due to food taken internally (Primary Dx) Social History Tobacco Use Types Packs/Day Years Used Date Smoking Tobacco: Never Assessed Comments Unknown Sex and Gender Information Value Date Recorded Sex Assigned at Not on file 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
--- OUTSIDE RECORDS SUMMARY | 2025-09-15 19:56 | XMS_ITS | Encounter Summary ---
Author Organization [employer] [facility] Address [address] [place] [address] Care Team Providers Care Rv Repair Technician Name Role Phone Unavailable Primary Care Provider Unavailabl e Encounter Details Date Type Department Care Team (Latest Contact Info) Description 02/04/2002 Outpatient Historical HIS [facility] Jamari Thomason MD [address] [place] [address] DYSURIA (Primary Dx); FOREIGN BODY FOOT & TOE; URIN TRACT INFECTION NOS Social History Tobacco Use Types Packs/Day Years Used Date Smoking Tobacco: Never Assessed Comments Unknown Sex and Gender Information Value Date Recorded Sex Assigned at Not on file 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
--- OUTSIDE RECORDS SUMMARY | 2025-09-15 19:56 | XMS_ITS | Encounter Summary ---
Author Organization [employer] [facility] Address [address] [place] [address] Care Team Providers Care Netbackup Admin Name Role Phone Unavailable Primary Care Provider Unavailabl e Encounter Details Date Type Department Care Team (Latest Contact Info) Description 01/21/1999 Outpatient Historical HIS [facility] Jamari Thomason MD [address] [place] [address] Unspecified otitis media (Primary Dx) Social History Tobacco Use Types Packs/Day Years Used Date Smoking Tobacco: Never Assessed Comments Unknown Sex and Gender Information Value Date Recorded Sex Assigned at Not on file 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
--- OUTSIDE RECORDS SUMMARY | 2025-09-15 19:56 | XMS_ITS | Encounter Summary ---
Author Organization Number 100 [facility] Address [address] [place] [address] Care Team Providers Care Sales Executive Insurance Name Role Phone Unavailable Primary Care Provider Unavailabl e Encounter Details Date Type Department Care Team (Latest Contact Info) Description 12/18/2001 Outpatient Historical HIS [facility] Jamari Thomason MD [address] [place] [address] BRONCHITIS NOS (Primary Dx) Social History Tobacco Use Types Packs/Day Years Used Date Smoking Tobacco: Never Assessed Comments Unknown Sex and Gender Information Value Date Recorded Sex Assigned at Not on file 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
--- OUTSIDE RECORDS SUMMARY | 2025-09-15 19:56 | XMS_ITS | Encounter Summary ---
Author Organization [employer] [facility] Address [address] [place] [address] Care Team Providers Care Water Pump Operator Name Role Phone Unavailable Primary Care Provider Unavailabl e Encounter Details Date Type Department Care Team (Latest Contact Info) Description 05/11/1999 Outpatient Historical HIS [facility] Jamari Thomason MD [address] [place] [address] Other, multiple, and unspecified sites, insect bite, nonvenomous, without mention of infection(919.4) (Primary Dx) Social History Tobacco Use Types Packs/Day Years Used Date Smoking Tobacco: Never Assessed Comments Unknown Sex and Gender Information Value Date Recorded Sex Assigned at Not on file 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
--- OUTSIDE RECORDS SUMMARY | 2025-09-15 19:56 | XMS_ITS | Encounter Summary ---
Author Organization [employer] [facility] 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
--- OUTSIDE RECORDS SUMMARY | 2025-09-15 19:56 | XMS_ITS | Encounter Summary ---
Author Organization [employer] [facility] Address [address] [place] [address] Care Team Providers Care Redevelopment Specialist Name Role Phone Unavailable Primary Care Provider Unavailabl e Encounter Details Date Type Department Care Team (Latest Contact Info) Description 07/04/2000 Outpatient Historical HIS [facility] Jamari Thomason MD [address] [place] [address] Bronchitis, not specified as acute or chronic (Primary Dx) Social History Tobacco Use Types Packs/Day Years Used Date Smoking Tobacco: Never Assessed Comments Unknown Sex and Gender Information Value Date Recorded Sex Assigned at Not on file 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
--- OUTSIDE RECORDS SUMMARY | 2025-09-15 19:56 | XMS_ITS | Encounter Summary ---
Author Organization [employer] [facility] Address [address] [place] [address] Care Team Providers Care Monogram And Letter Paster Name Role Phone Unavailable Primary Care Provider Unavailabl e Encounter Details Date Type Department Care Team (Latest Contact Info) Description 1998 Outpatient Historical HIS [facility] Jamari Thomason MD [address] [place] [address] Bronchitis, not specified as acute or chronic (Primary Dx) Social History Tobacco Use Types Packs/Day Years Used Date Smoking Tobacco: Never Assessed Comments Unknown Sex and Gender Information Value Date Recorded Sex Assigned at Not on file 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
--- OUTSIDE RECORDS SUMMARY | 2025-09-15 19:56 | XMS_ITS | Encounter Summary ---
Author Organization [employer] [facility] Address [address] [place] [address] Care Team Providers Care Filler Blender Name Role Phone Unavailable Primary Care Provider Unavailabl e Encounter Details Date Type Department Care Team (Latest Contact Info) Description 01/01/2001 Outpatient Historical HIS [facility] Jamari Thomason MD [address] [place] [address] Other and unspecified noninfectious gastroenteritis and colitis(558.9) (Primary Dx) Social History Tobacco Use Types Packs/Day Years Used Date Smoking Tobacco: Never Assessed Comments Unknown Sex and Gender Information Value Date Recorded Sex Assigned at Not on file 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
--- OUTSIDE RECORDS SUMMARY | 2025-09-15 19:56 | XMS_ITS | Encounter Summary ---
Author Organization [email or web address] [facility] Address [address] [place] [address] Care Team Providers Care Agricultural Economist Name Role Phone Unavailable Primary Care Provider Unavailabl e Encounter Details Date Type Department Care Team (Latest Contact Info) Description 01/09/2001 Outpatient Historical HIS [facility] Jamari Thomason MD [address] [place] [address] Urinary tract infection, site not specified (Primary Dx) Social History Tobacco Use Types Packs/Day Years Used Date Smoking Tobacco: Never Assessed Comments Unknown Sex and Gender Information Value Date Recorded Sex Assigned at Not on file 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
--- NOTE | 2025-09-15 21:34 | USR_ITS ---
PROCEDURE INFORMATION: Exam: US First Trimester, Transabdominal and US , Transvaginal Exam date and time: 09/15/2025 9:46 PM Age: 25 years old Clinical indication: Lmp or gestational age (in weeks): 12w 1d; Antepartum complications; Bleeding; ; G3-p3-a0-l3 (2nd was a set of twins); Additional info: Vag bleeding LABS AND CLINICAL REPORTS: Last menstrual period start date: 06/22/2025 Gestational age (Established): 12 w 1 d Estimated due date (Established): 09/15/2026 TECHNIQUE: Imaging protocol: Real-time transabdominal obstetrical ultrasound of the maternal pelvis and a first trimester , less than 14 weeks 0 days, with image documentation. Transvaginal imaging was used for better evaluation of the fetus, adnexa, and/or cervix. COMPARISON: US gall bladder [id number] 08/19/2025 12:41 AM FINDINGS: GESTATION: Gestation: Intrauterine gestation is visualized. pole is visualized. No yolk sac is visualized. Embryo/ cardiac activity (BPM): 163 bpm Extra-embryonic membranes/Placenta: Unremarkable. No subchorionic bleed. Amniotic/Chorionic fluid: Amniotic and extra-amniotic fluid are normal for gestational age. BIOMETRY: Gestational age (AUA): 12 w 1 d Estimated due date (AUA): 09/15/2026 [place] rump length (CRL): 56 mm. EGA is 12 w 1 d MATERNAL: Uterus: Uterus measures 13.42 cm x 8.84 cm x 7.37 cm. 5.5 cm probable fibroid in the anterior uterus. Cervix: Unremarkable. Endocervical canal is closed. Right ovary/adnexa: Right ovary measures 2.9 cm x 2.7 cm x 2.6 cm. Right ovarian volume is 10.9 mL. Left ovary/adnexa: Left ovary measures 3.7 cm x 3.4 cm x 2.2 cm. Left ovarian volume is 14.6 mL. Intraperitoneal space: No intraperitoneal free fluid. US/US OB <= 14 weeks fetus [id number] IMPRESSION: 1. Single live intrauterine . 2. 5.5 cm probable fibroid in the anterior uterus.
[2025-09-15 21:56] LABS: HCG Qualitative Urine. Positive (Negative)
[2025-09-15 22:28] LABS: Glucose Urine UA Norm (Normal); Nitrate Urine Negative (Negative); Specific Gravity, Urine 1.033 (1.005-1.030)
[2025-09-15 22:29] LABS: Add Urine Microscopic? YES; UA Slide Review UA Slide Review Perf
[2025-09-15 23:34] LABS: Hematocrit 35.9 % (36-47); Hemoglobin 12.30 g/dL (11.27-16.99); Mean Corpuscular HGB Conc 34.3 g/dL (30-55); Mean Corpuscular Hemoglobin 30.8 pg (27-33); Mean Corpuscular Volume 89.8 fl (85-98); Nucleated Red Blood Cells % 0 %; Platelet Count 248 10^3/cmm (157-399); Red Blood Count 4.00 10^6/uL (3.85-5.65); White Blood Count 13.27 10^3/uL (3.29-11.43)
[2025-09-15 23:48] LABS: Alanine Aminotransferase 9 U/L (0-33); Albumin Level 4.1 g/dL (3.5-5.2); Alkaline Phosphatase 81 U/L (35-105); Anion Gap 15.8 (5-19); Aspartate Amino Transferase 11 U/L (0-32); Blood Urea Nitrogen 7 mg/dL (6-20); Calcium 9.5 mg/dL (8.5-10.5); Carbon Dioxide 25 mmol/L (22-29); Chloride 103 mmol/L (98-107); Globulin 2.7 g/dL (1.3-4.6); Glucose 116 mg/dL (65-115); Osmolality Calculated 289 mOsm/kg (285-295); Potassium 3.8 mmol/L (3.5-5.1); Sodium 140 mmol/L (136-145); Total Protein 6.8 g/dL (6.6-8.7)
[2025-09-16] MEDS: cefTRIAXone 1,000 MG in water for injection-sterile 2.1 ML 2.1 MG IM (00:17)
[2025-09-16 00:30] LABS: Glucose Urine UA Trace (Normal); Nitrate Urine Positive (Negative); Specific Gravity, Urine 1.020 (1.005-1.030)
[2025-09-16 00:35] LABS: Add Urine Microscopic? YES
== END 2025-09-16 00:37 | disposition home or self-care (01) ==
PROVIDERS: Emergency Provider Physician Assistant
DX: Z01.89 Encounter for other specified special examinations (principal); Z53.1 Procedure and treatment not carried out because of patient's decision for reasons of belief and group pressure; O20.9 Hemorrhage in early pregnancy, unspecified
CPT/HCPCS: 76801; 80053; 81001; 81025; 85025; 85378; 86850; 86900; 87077; 87086; 87186; 96372; 99284; J0696; J9999

== ENCOUNTER 2025-10-04 19:03 | Emergency (ER) | payer MEDICAID, SELFPAY ==
[2025-10-04 19:08] VITALS: BP 131/82; PULSE 75; RESP 16; TEMP 36.6; O2SAT 98; BMI 35.9
--- OUTSIDE RECORDS SUMMARY | 2025-10-04 19:09 | XMS_ITS | Encounter Summary ---
Author Organization [facility] Address [address] [place] [address] Care Team Providers Care Model Set Artist Name Role Phone Unavailable Primary Care Provider Unavailabl e Encounter Details Date Type Department Care Team (Latest Contact Info) Description 02/11/2002 Outpatient Historical HIS [facility] Jamari Thomason MD [address] [place] [address] NONINFEC GASTROENTERIT NEC (Primary Dx) Social History Tobacco Use Types Packs/Day Years Used Date Smoking Tobacco: Never Assessed Comments Unknown Sex and Gender Information Value Date Recorded Sex Assigned at Not on file 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
--- OUTSIDE RECORDS SUMMARY | 2025-10-04 19:09 | XMS_ITS | Encounter Summary ---
Author Organization [employer] [facility] Address [address] [place] [address] Care Team Providers Care Mortuary Beautician Name Role Phone Unavailable Primary Care Provider Unavailabl e Encounter Details Date Type Department Care Team (Latest Contact Info) Description 12/26/2000 Outpatient Historical HIS [facility] Jamari Thomason MD [address] [place] [address] Dermatitis due to food taken internally (Primary Dx) Social History Tobacco Use Types Packs/Day Years Used Date Smoking Tobacco: Never Assessed Comments Unknown Sex and Gender Information Value Date Recorded Sex Assigned at Not on file 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
--- OUTSIDE RECORDS SUMMARY | 2025-10-04 19:09 | XMS_ITS | Encounter Summary ---
Author Organization [facility] Address [address] 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
--- OUTSIDE RECORDS SUMMARY | 2025-10-04 19:09 | XMS_ITS | Encounter Summary ---
Author Organization [facility] Address [address] [place] [address] Care Team Providers Care Air Surveillance Operator Name Role Phone Unavailable Primary Care Provider Unavailabl e Encounter Details Date Type Department Care Team (Latest Contact Info) Description 12/06/1999 Outpatient Historical HIS [facility] Jamari Thomason MD [address] [place] [address] Acute upper respiratory infections of unspecified site (Primary Dx); Other and unspecified noninfectious gastroenteritis and colitis(558.9) Social History Tobacco Use Types Packs/Day Years Used Date Smoking Tobacco: Never Assessed Comments Unknown Sex and Gender Information Value Date Recorded Sex Assigned at Not on file 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
--- OUTSIDE RECORDS SUMMARY | 2025-10-04 19:09 | XMS_ITS | Encounter Summary ---
Author Organization [facility] Address [address] [place] [address] Care Team Providers Care Steel Estimator Name Role Phone Unavailable Primary Care Provider Unavailabl e Encounter Details Date Type Department Care Team (Latest Contact Info) Description 01/21/1999 Outpatient Historical HIS [facility] Jamari Thomason MD [address] [place] [address] Unspecified otitis media (Primary Dx) Social History Tobacco Use Types Packs/Day Years Used Date Smoking Tobacco: Never Assessed Comments Unknown Sex and Gender Information Value Date Recorded Sex Assigned at Not on file Legal Sex Female 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
--- OUTSIDE RECORDS SUMMARY | 2025-10-04 19:09 | XMS_ITS | Encounter Summary ---
Author Organization [employer] [facility] Address [address] [place] [address] Care Team Providers Care Milker Machine Name Role Phone Unavailable Primary Care Provider Unavailabl e Encounter Details Date Type Department Care Team (Latest Contact Info) Description 06/28/1999 Outpatient Historical HIS [facility] Yahir Clements, Johan Scott MD [address] [place] [address] Bronchitis, not specified as acute or chronic (Primary Dx) Social History Tobacco Use Types Packs/Day Years Used Date Smoking Tobacco: Never Assessed Comments Unknown Sex and Gender Information Value Date Recorded Sex Assigned at Not on file 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
--- OUTSIDE RECORDS SUMMARY | 2025-10-04 19:09 | XMS_ITS | Encounter Summary ---
Author Organization [facility] Address [address] [place] [address] Care Team Providers Care Baker Paint Name Role Phone Unavailable Primary Care Provider Unavailabl e Encounter Details Date Type Department Care Team (Latest Contact Info) Description 10/28/1999 Outpatient Historical HIS [facility] Jamari Thomason MD [address] [place] [address] Unspecified otitis media (Primary Dx); Attention to dressings and sutures Social History Tobacco Use Types Packs/Day Years Used Date Smoking Tobacco: Never Assessed Comments Unknown Sex and Gender Information Value Date Recorded Sex Assigned at Not on file 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
--- OUTSIDE RECORDS SUMMARY | 2025-10-04 19:09 | XMS_ITS | Encounter Summary ---
Author Organization [employer] [facility] Address [address] [place] [address] Care Team Providers Care Dairy Farmer Name Role Phone Unavailable Primary Care Provider Unavailabl e Encounter Details Date Type Department Care Team (Latest Contact Info) Description 1998 Outpatient Historical HIS [facility] Jamari Thomason MD [address] [place] [address] Bronchitis, not specified as acute or chronic (Primary Dx) Social History Tobacco Use Types Packs/Day Years Used Date Smoking Tobacco: Never Assessed Comments Unknown Sex and Gender Information Value Date Recorded Sex Assigned at Not on file 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
--- OUTSIDE RECORDS SUMMARY | 2025-10-04 19:09 | XMS_ITS | Clinical Summary ---
Author Organization [facility] Address [address] 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
--- OUTSIDE RECORDS SUMMARY | 2025-10-04 19:09 | XMS_ITS | Encounter Summary ---
Author Organization [facility] Address [address] [place] [address] Care Team Providers Care Eco Industrial Development Consultant Name Role Phone Unavailable Primary Care Provider Unavailabl e Encounter Details Date Type Department Care Team (Latest Contact Info) Description 07/04/2000 Outpatient Historical HIS [facility] Jamari Thomason MD [address] [place] [address] Bronchitis, not specified as acute or chronic (Primary Dx) Social History Tobacco Use Types Packs/Day Years Used Date Smoking Tobacco: Never Assessed Comments Unknown Sex and Gender Information Value Date Recorded Sex Assigned at Not on file Legal Sex Female 6:00 AM LEGAL COORDINATOR Gender Identity Not on file Sexual Orientation Not on file documented as of this encounter Plan of Treatment Not on file documented as of this encounter Visit Diagnoses Diagnosis Bronchitis, not specified as acute or chronic- Primary documented in this encounter
--- OUTSIDE RECORDS SUMMARY | 2025-10-04 19:09 | XMS_ITS | Encounter Summary ---
Author Organization [employer] [facility] Address [address] [place] [address] Care Team Providers Care Dredge Or Barge Shore Hand Name Role Phone Unavailable Primary Care Provider Unavailabl e Encounter Details Date Type Department Care Team (Latest Contact Info) Description 09/18/2001 Outpatient Historical HIS [facility] Jamari Thomason MD [address] [place] [address] BRONCHITIS NOS (Primary Dx); DIAPER OR NAPKIN RASH Social History Tobacco Use Types Packs/Day Years Used Date Smoking Tobacco: Never Assessed Comments Unknown Sex and Gender Information Value Date Recorded Sex Assigned at Not on file 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
--- OUTSIDE RECORDS SUMMARY | 2025-10-04 19:09 | XMS_ITS | Encounter Summary ---
Author Organization [facility] Address [address] [place] [address] Care Team Providers Care Program Checker Name Role Phone Unavailable Primary Care Provider Unavailabl e Encounter Details Date Type Department Care Team (Latest Contact Info) Description 01/09/2001 Outpatient Historical HIS [facility] Jamari Thomason MD [address] [place] [address] Urinary tract infection, site not specified (Primary Dx) Social History Tobacco Use Types Packs/Day Years Used Date Smoking Tobacco: Never Assessed Comments Unknown Sex and Gender Information Value Date Recorded Sex Assigned at Not on file 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
--- OUTSIDE RECORDS SUMMARY | 2025-10-04 19:09 | XMS_ITS | Encounter Summary ---
Author Organization [facility] Address [address] [place] [address] Care Team Providers Care Agricultural Real Estate Agent Name Role Phone Unavailable Primary Care Provider Unavailabl e Encounter Details Date Type Department Care Team (Latest Contact Info) Description 02/04/2002 Outpatient Historical HIS [facility] Jamari Thomason MD [address] [place] [address] DYSURIA (Primary Dx); FOREIGN BODY FOOT & TOE; URIN TRACT INFECTION NOS Social History Tobacco Use Types Packs/Day Years Used Date Smoking Tobacco: Never Assessed Comments Unknown Sex and Gender Information Value Date Recorded Sex Assigned at Not on file Legal Sex Female 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
--- OUTSIDE RECORDS SUMMARY | 2025-10-04 19:09 | XMS_ITS | Encounter Summary ---
Author Organization [facility] Address [address] [place] [address] Care Team Providers Care Brick Machine Operator Name Role Phone Unavailable Primary Care Provider Unavailabl e Encounter Details Date Type Department Care Team (Latest Contact Info) Description 12/27/2001 Outpatient Historical HIS 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
--- OUTSIDE RECORDS SUMMARY | 2025-10-04 19:09 | XMS_ITS | Encounter Summary ---
Author Organization [facility] Address [address] [place] [address] Care Team Providers Care Engineer Soils Name Role Phone Unavailable Primary Care Provider Unavailabl e Encounter Details Date Type Department Care Team (Latest Contact Info) Description 05/11/1999 Outpatient Historical HIS [facility] Jamari Thomason MD [address] [place] [address] Other, multiple, and unspecified sites, insect bite, nonvenomous, without mention of infection(919.4) (Primary Dx) Social History Tobacco Use Types Packs/Day Years Used Date Smoking Tobacco: Never Assessed Comments Unknown Sex and Gender Information Value Date Recorded Sex Assigned at Not on file Legal Sex Female 6:00 AM MANAGER DATABASE Gender Identity Not on file Sexual Orientation [...]
--- OUTSIDE RECORDS SUMMARY | 2025-10-04 19:09 | XMS_ITS | Encounter Summary ---
Author Organization [facility] Address [address] [place] [address] Care Team Providers Care Carbonizer Name Role Phone Unavailable Primary Care Provider Unavailabl e Encounter Details Date Type Department Care Team (Latest Contact Info) Description 08/06/1999 Outpatient Historical HIS [facility] Jamari Thomason MD [address] [place] [address] Unspecified otitis media (Primary Dx); Acute upper respiratory infections of unspecified site Social History Tobacco Use Types Packs/Day Years Used Date Smoking Tobacco: Never Assessed Comments Unknown Sex and Gender Information Value Date Recorded Sex Assigned at Not on file 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
--- OUTSIDE RECORDS SUMMARY | 2025-10-04 19:09 | XMS_ITS | Encounter Summary ---
Author Organization [employer] [facility] Address [address] [place] [address] Care Team Providers Care Link Trainer Maintenance Worker Name Role Phone Unavailable Primary Care Provider Unavailabl e Encounter Details Date Type Department Care Team (Latest Contact Info) Description 12/18/2001 Outpatient Historical HIS [facility] Jamari Thomason MD [address] [place] [address] BRONCHITIS NOS (Primary Dx) Social History Tobacco Use Types Packs/Day Years Used Date Smoking Tobacco: Never Assessed Comments Unknown Sex and Gender Information Value Date Recorded Sex Assigned at Not on file 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
--- OUTSIDE RECORDS SUMMARY | 2025-10-04 19:09 | XMS_ITS | Encounter Summary ---
Author Organization [facility] Address [address] [place] [address] Care Team Providers Care Small Wind Energy Installer Name Role Phone Unavailable Primary Care Provider Unavailabl e Encounter Details Date Type Department Care Team (Latest Contact Info) Description 01/01/2001 Outpatient Historical HIS [facility] Jamari Thomason MD [address] [place] [address] Other and unspecified noninfectious gastroenteritis and colitis(558.9) (Primary Dx) Social History Tobacco Use Types Packs/Day Years Used Date Smoking Tobacco: Never Assessed Comments Unknown Sex and Gender Information Value Date Recorded Sex Assigned at Not on file Legal Sex Female 6:00 AM TOURIST INFORMATION ASSISTANT Gender Identity Not on file Sexual Orientation Not on file documented as of this encounter Plan of Treatment Not on file documented as of this encounter Visit Diagnoses Diagnosis Other and unspecified noninfectious gastroenteritis and colitis(558.9)- Primary Other and unspecified noninfectious gastroenteritis and colitis documented in this encounter
--- NOTE | 2025-10-04 19:54 | ED_ITS ---
HPI - Dental/Oral 2 General: Chief complaint: Dental/Oral Stated complaint: numbness in LT and teeth hurting on LT side Time Seen by Provider: 10/04/25 19:20 History of Present Illness: 25-year-old female that presents to the emergency room with left upper jaw worsening pain over the last 2 weeks. She is able to open her mouth. She is not having any systemic symptoms such as fever. She is 13 weeks . Her pain is in her left upper jaw. There is some localized swelling. She does not have swelling outside of her mouth. She speaks full sentences. Associated symptoms: Denies fever(s) or odynophagia Related Data Previous Rx's ?Medication ?Instructions ?Recorded chlorhexidine gluconate 0.12 % 15 ml buccal BID #1,893 mL 10/04/25 mouthwash clindamycin HCl 300 mg capsule 300 mg PO Q6H 10 days # 40 caps 10/04/25 (Cleocin HCl) Allergies Allergy/AdvReac Type Severity Reaction Status Date / [facility] Allergy ALGY-Difficulty Verified 09/15/25 19:59 Breathing Penicillins Allergy Unconscious Verified 09/15/25 19:59 Review of Systems 2 Const: Denies: fever(s), chills, change in weight or fatigue Eyes: Denies: change in vision ENMT: Denies: odynophagia Card: Denies: chest pain Resp: Denies: dyspnea GI: Reports: heartburn and constipation : Denies: dysuria Skin/Breast: Denies: rash, nipple discharge or breast mass Neuro: Denies: seizure-like activity Petey/Lymph: Denies: easy bruising PFSH ED 2 PFSH: Medical History (Updated 10/04/25 @ 19:56 by HARSHA Talley) No pertinent past medical history Family History (Updated 08/27/25 @ 13:51 by Deep Haskins LPN) Mother Cancer Social History Smoking and tobacco/nicotine status: never used tobacco/nicotine Physical Exam 2 Const: COMMON NORMALS: no acute distress, patient oriented x3 and healthy appearing HENMT: TEETH & GINGIVA IMAGES: 1. Local edema and redness 2. Decay 3. Decay 4. Decay, fracture Eye: COMMON NORMALS: Equal, round and reactive pupils present and EOMs intact bilaterally PUPIL: Yes Equal, round and reactive pupils present Neck/C-Spine: COMMON NORMALS: full ROM and supple Chest: COMMONS NORMALS: normal inspection of the chest Resp: COMMON NORMALS: normal respiratory effort, No retractions, No use of accessory muscles and clear to auscultation bilaterally AUSCULTATION: clear to auscultation bilaterally Cardio: COMMON NORMALS: regular rate, regular rhythm and No murmurs present (Cardio) RATE: regular rate RHYTHM: regular rhythm GI: COMMON NORMALS: Normal to inspection, nondistended, normoactive bowel sounds present, Soft to palpation, non-tender and no masses PALPATION: Yes Soft to palpation : COMMON NORMALS: Yes no CVA tenderness BLADDER/KIDNEY EXAM: Yes no CVA tenderness Back/Pelvis: COMMON NORMALS: no CVA tenderness and thoracic and lumbar spine normal to inspection Extremity: COMMON NORMALS: normal to inspection and full ROM Neuro: COMMON NORMALS: patient oriented x3, moves all extremities and no focal motor deficits Psych: COMMON NORMALS: mental status grossly normal, Normal thought process present and cooperative THOUGHT PROCESS: Normal thought process present Skin: COMMON NORMALS: no rashes or lesions noted and no wounds GENERAL SKIN EXAM: no rashes or lesions noted Course 2 Vital Signs: Vital signs: Vital Signs Temperature 97.9 F 10/04/25 19:08 Pulse Rate 80 10/04/25 19:58 Respiratory Rate 16 10/04/25 19:58 Blood Pressure 142/93 10/04/25 19:58 Pulse Oximetry 98 10/04/25 19:58 Oxygen Delivery Me thod Room Air 10/04/25 19:58 MDM - Dental/Oral Medical Decision Making Patient is a 25-year-old female with 13-week , with left upper jaw pain. She has some localized tenderness, and swelling. She will be loaded on clindamycin, and sent home with clindamycin, as well as clindamycin at the pharmacy. Has an appoint with her dentist on the . Of note, she has multiple areas of decay in her upper teeth. This particular area, has a fracture, with the localized redness. All of patient's questions were answered to her satisfaction. No radiology studies performed this visit Discharge Plan Discharge Patient Disposition: Home Clinical Impression: Toothache, Dental caries Condition: Stable Prescriptions: New chlorhexidine gluconate 0.12 % mouthwash 15 ml buccal BID Qty: 189 0RF clindamycin HCl [Cleocin HCl] 300 mg capsule 300 mg PO Q6H 10 Days Qty: 40 0RF Discharge Orders: Discharge ED (Routine); Ordered 10/04/25 Ordered By: Suki Cool Discharge Diet: Soft Mechanical Discharge Activity: Resume usual activity Patient Instructions: Dental Caries (Cavities), Patient Portal & Dali Instructions Activity Restrictions/Additional Instructions: - At the pharmacy: Chlorhexidine, clindamycin. Chlorhexidine as a powerful mouthwash to help with the pain due to inflammation and bacteria We discussed: Your clindamycin. This is ordered for 4 times daily. Initially, take 2 pills at once tomorrow. On Monday, go to 3 times daily. We also discussed active culture yogurt versus probiotic to avoid infectious diarrhea I am glad you are doing well I am thankful you have a dentist appointment on 10/07, and hopefully this will be taking care of Thank you for choosing [facility] for your healthcare needs today. You have been screened and evaluated and felt safe for discharge. Health conditions do change or evolve sometimes and as such it is important that you follow up with your Primary Doctor to be re checked, 3-5 days is a general good time frame for follow up. You are always welcome to return to the ED for re assessment if your symptoms are worsening or you have new concerns Print Language: Greek Coding Level of Care Code ED Hotel Staff Member for Tamar Little
[2025-10-04 19:58] VITALS: BP 142/93; PULSE 80; RESP 16; O2SAT 98
== END 2025-10-04 20:13 | disposition home or self-care (01) ==
PROVIDERS: Emergency Provider Physician Assistant
DX: K08.89 Other specified disorders of teeth and supporting structures (principal); K02.9 Dental caries, unspecified
CPT/HCPCS: 99283; J9999

== ENCOUNTER 2025-10-12 22:13 | Emergency (ER) | payer MEDICAID, SELFPAY ==
--- OUTSIDE RECORDS SUMMARY | 2025-10-12 22:21 | XMS_ITS | Encounter Summary ---
Author Organization [facility] Address [address] [place] [address] Care Team Providers Care Financial Reserve Clerk Name Role Phone Unavailable Primary Care Provider Unavailabl e Encounter Details Date Type Department Care Team (Latest Contact Info) Description 01/21/1999 Outpatient Historical HIS [facility] Jamari Thomason MD [address] [place] [address] Unspecified otitis media (Primary Dx) Social History Tobacco Use Types Packs/Day Years Used Date Smoking Tobacco: Never Assessed Comments Unknown Sex and Gender Information Value Date Recorded Sex Assigned at Not on file 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
--- OUTSIDE RECORDS SUMMARY | 2025-10-12 22:21 | XMS_ITS | Encounter Summary ---
Author Organization [facility] Address [address] [place] [address] Care Team Providers Care Sprinkler Inspector Name Role Phone Unavailable Primary Care Provider Unavailabl e Encounter Details Date Type Department Care Team (Latest Contact Info) Description 12/06/1999 Outpatient Historical HIS [facility] Jamari Thomason MD [address] [place] [address] Acute upper respiratory infections of unspecified site (Primary Dx); Other and unspecified noninfectious gastroenteritis and colitis(558.9) Social History Tobacco Use Types Packs/Day Years Used Date Smoking Tobacco: Never Assessed Comments Unknown Sex and Gender Information Value Date Recorded Sex Assigned at Not on file Legal Sex Female 6: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
--- OUTSIDE RECORDS SUMMARY | 2025-10-12 22:21 | XMS_ITS | Encounter Summary ---
Author Organization [facility] Address [address] [place] [address] Care Team Providers Care Manager Personal Name Role Phone Unavailable Primary Care Provider Unavailabl e Encounter Details Date Type Department Care Team (Latest Contact Info) Description 01/01/2001 Outpatient Historical HIS [facility] Jamari Thomason MD [address] [place] [address] Other and unspecified noninfectious gastroenteritis and colitis(558.9) (Primary Dx) Social History Tobacco Use Types Packs/Day Years Used Date Smoking Tobacco: Never Assessed Comments Unknown Sex and Gender Information Value Date Recorded Sex Assigned at Not on file Legal Sex Female 6:00 AM THERAPEUTIC SPECIALIST Gender Identity Not on file Sexual Orientation Not on file documented as of this encounter Plan of Treatment Not on file documented as of this encounter Visit Diagnoses Diagnosis Other and unspecified noninfectious gastroenteritis and colitis(558.9)- Primary Other and unspecified noninfectious gastroenteritis and colitis documented in this encounter
--- OUTSIDE RECORDS SUMMARY | 2025-10-12 22:21 | XMS_ITS | Encounter Summary ---
Author Organization [facility] Address [address] [place]: Epic [place] [address] Care Team Providers Care Computer Field Technician Name Role Phone Unavailable Primary Care Provider Unavailabl e Encounter Details Date Type Department Care Team (Late st Contact Info) Description 02/04/2002 Outpatient Historical Jamari Thomason MD [address] [place] [address] Social History Tobacco Use Types Packs/Day Years Used Date Smoking Tobacco: Never Assessed Comments Unknown Sex and Gender Information Value Date Recorded Sex Assigned at Not on file Legal Sex Female 6:00 AM BLADE BENDER FURNACE TENDER Gender Identity Not on file Sexual Orientation Not on file documented as of this encounter Plan of Treatment Not on file documented as of this encounter Visit Diagnoses Not on filedocumented in this encounter
--- OUTSIDE RECORDS SUMMARY | 2025-10-12 22:21 | XMS_ITS | Encounter Summary ---
Author Organization [facility] Address [address] [place] [address] Care Team Providers Care Beading Installer Name Role Phone Unavailable Primary Care Provider Unavailabl e Encounter Details Date Type Department Care Team (Latest Contact Info) Description 12/27/2001 Outpatient Historical HIS [facility] Jamari Thomason MD [address] [place] [address] ACUTE URI NOS (Primary Dx); VIRAL EXANTHEMATA NOS Social History Tobacco Use Types Packs/Day Years Used Date Smoking Tobacco: Never Assessed Comments Unknown Sex and Gender Information Value Date Recorded Sex Assigned at Not on file Legal Sex Female 6:00 AM THERAPEUTIC ACTIVITIES SERVICES WORKER Gender Identity Not on file Sexual Orientation Not on file documented as of this encounter Plan of Treatment Not on file documented as of this encounter Visit Diagnoses Diagnosis Acute upper respiratory infections of unspecified site- Primary Viral exanthem, unspecified documented in this encounter
--- OUTSIDE RECORDS SUMMARY | 2025-10-12 22:21 | XMS_ITS | Encounter Summary ---
Author Organization [employer] [facility] Address [address] [place] [address] Care Team Providers Care Rabies Inspector Name Role Phone Unavailable Primary Care Provider Unavailabl e Encounter Details Date Type Department Care Team (Latest Contact Info) Description 07/04/2000 Outpatient Historical HIS [facility] Jamari Thomason MD [address] [place] [address] Bronchitis, not specified as acute or chronic (Primary Dx) Social History Tobacco Use Types Packs/Day Years Used Date Smoking Tobacco: Never Assessed Comments Unknown Sex and Gender Information Value Date Recorded Sex Assigned at Not on file 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
--- OUTSIDE RECORDS SUMMARY | 2025-10-12 22:21 | XMS_ITS | Encounter Summary ---
Author Organization [employer] [facility] Address [address] [place] [address] Care Team Providers Care Bias Binding Cutter Name Role Phone Unavailable Primary Care Provider Unavailabl e Encounter Details Date Type Department Care Team (Latest Contact Info) Description 1998 Outpatient Historical HIS [facility] Jamari Thomason MD [address] [place] [address] Bronchitis, not specified as acute or chronic (Primary Dx) Social History Tobacco Use Types Packs/Day Years Used Date Smoking Tobacco: Never Assessed Comments Unknown Sex and Gender Information Value Date Recorded Sex Assigned at Not on file Legal Sex Female 6:00 AM PERIPHERAL VASCULAR TECH Gender Identity Not on file Sexual Orientation Not on file documented as of this encounter Plan of Treatment Not on file documented as of this encounter Visit Diagnoses Diagnosis Bronchitis, not specified as acute or chronic- Primary documented in this encounter
--- OUTSIDE RECORDS SUMMARY | 2025-10-12 22:21 | XMS_ITS | Encounter Summary ---
Author Organization [facility] Address [address] [place] [address] Care Team Providers Care Consumer Services Consultant Name Role Phone Unavailable Primary Care Provider Unavailabl e Encounter Details Date Type Department Care Team (Latest Contact Info) Description 02/11/2002 Outpatient Historical HIS [facility] Jamari Thomason MD [address] [place] [address] NONINFEC GASTROENTERIT NEC (Primary Dx) Social History Tobacco Use Types Packs/Day Years Used Date Smoking Tobacco: Never Assessed Comments Unknown Sex and Gender Information Value Date Recorded Sex Assigned at Not on file Legal Sex Female 6:00 AM LOW PRESSURE KETTLE OPERATOR Gender Identity Not on file Sexual Orientation Not on file documented as of this encounter Plan of Treatment Not on file documented as of this encounter Visit Diagnoses Diagnosis Other and unspecified noninfectious gastroenteritis and colitis(558.9)- Primary Other and unspecified noninfectious gastroenteritis and colitis documented in this encounter
--- OUTSIDE RECORDS SUMMARY | 2025-10-12 22:21 | XMS_ITS | Encounter Summary ---
Author Organization [facility] Address [address] [place] [address] Care Team Providers Care Manager Social Work Name Role Phone Unavailable Primary Care Provider Unavailabl e Encounter Details Date Type Department Care Team (Latest Contact Info) Description 05/11/1999 Outpatient Historical HIS [facility] Jamari Thomason MD [address] [place] [address] Other, multiple, and unspecified sites, insect bite, nonvenomous, without mention of infection(919.4) (Primary Dx) Social History Tobacco Use Types Packs/Day Years Used Date Smoking Tobacco: Never Assessed Comments Unknown Sex and Gender Information Value Date Recorded Sex Assigned at Not on file Legal Sex Female 6:00 AM PROOFER PREPRESS Gender Identity Not on file Sexual Orientation [...]
--- OUTSIDE RECORDS SUMMARY | 2025-10-12 22:21 | XMS_ITS | Encounter Summary ---
Author Organization [employer] [facility] Address [address] [place] [address] Care Team Providers Care Die Storage Worker Name Role Phone Unavailable Primary Care Provider Unavailabl e Encounter Details Date Type Department Care Team (Latest Contact Info) Description 12/18/2001 Outpatient Historical HIS [facility] Jamari Thomason MD [address] [place] [address] BRONCHITIS NOS (Primary Dx) Social History Tobacco Use Types Packs/Day Years Used Date Smoking Tobacco: Never Assessed Comments Unknown Sex and Gender Information Value Date Recorded Sex Assigned at Not on file 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
--- OUTSIDE RECORDS SUMMARY | 2025-10-12 22:21 | XMS_ITS | Clinical Summary ---
Author Organization [employer] Address [address] 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
--- OUTSIDE RECORDS SUMMARY | 2025-10-12 22:21 | XMS_ITS | Encounter Summary ---
Author Organization [facility] Address [address] [place] [address] Care Team Providers Care Document Control Coordinator Name Role Phone Unavailable Primary Care Provider Unavailabl e Encounter Details Date Type Department Care Team (Latest Contact Info) Description 02/04/2002 Outpatient Historical HIS [facility] Jamari Thomason MD [address] [place] [address] DYSURIA (Primary Dx); FOREIGN BODY FOOT & TOE; URIN TRACT INFECTION NOS Social History Tobacco Use Types Packs/Day Years Used Date Smoking Tobacco: Never Assessed Comments Unknown Sex and Gender Information Value Date Recorded Sex Assigned at Not on file 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
--- OUTSIDE RECORDS SUMMARY | 2025-10-12 22:21 | XMS_ITS | Encounter Summary ---
Author Organization [facility] Address [address] [place] [address] Care Team Providers Care Vegetable Tester Name Role Phone Unavailable Primary Care Provider Unavailabl e Encounter Details Date Type Department Care Team (Latest Contact Info) Description 08/06/1999 Outpatient Historical HIS [facility] Jamari Thomason MD [address] [place] [address] Unspecified otitis media (Primary Dx); Acute upper respiratory infections of unspecified site Social History Tobacco Use Types Packs/Day Years Used Date Smoking Tobacco: Never Assessed Comments Unknown Sex and Gender Information Value Date Recorded Sex Assigned at Not on file 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
--- OUTSIDE RECORDS SUMMARY | 2025-10-12 22:21 | XMS_ITS | Encounter Summary ---
Author Organization [employer] [facility] Address [address] [place] [address] Care Team Providers Care Computer Systems Technology Instructor Name Role Phone Unavailable Primary Care Provider Unavailabl e Encounter Details Date Type Department Care Team (Latest Contact Info) Description 12/26/2000 Outpatient Historical HIS [facility] Jamari Thomason MD [address] [place] [address] Dermatitis due to food taken internally (Primary Dx) Social History Tobacco Use Types Packs/Day Years Used Date Smoking Tobacco: Never Assessed Comments Unknown Sex and Gender Information Value Date Recorded Sex Assigned at Not on file 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
--- OUTSIDE RECORDS SUMMARY | 2025-10-12 22:21 | XMS_ITS | Encounter Summary ---
Author Organization [employer] [facility] Address [address] [place] [address] Care Team Providers Care Lowerator Operator Name Role Phone Unavailable Primary Care Provider Unavailabl e Encounter Details Date Type Department Care Team (Latest Contact Info) Description 09/18/2001 Outpatient Historical HIS [facility] Jamari Thomason MD [address] [place] [address] BRONCHITIS NOS (Primary Dx); DIAPER OR NAPKIN RASH Social History Tobacco Use Types Packs/Day Years Used Date Smoking Tobacco: Never Assessed Comments Unknown Sex and Gender Information Value Date Recorded Sex Assigned at Not on file 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
--- OUTSIDE RECORDS SUMMARY | 2025-10-12 22:21 | XMS_ITS | Encounter Summary ---
Author Organization [facility] Address [address] [place] [address] Care Team Providers Care Hammer Driver Name Role Phone Unavailable Primary Care Provider Unavailabl e Encounter Details Date Type Department Care Team (Latest Contact Info) Description 10/28/1999 Outpatient Historical HIS [facility] Jamari Thomason MD [address] [place] [address] Unspecified otitis media (Primary Dx); Attention to dressings and sutures Social History Tobacco Use Types Packs/Day Years Used Date Smoking Tobacco: Never Assessed Comments Unknown Sex and Gender Information Value Date Recorded Sex Assigned at Not on file 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
--- OUTSIDE RECORDS SUMMARY | 2025-10-12 22:21 | XMS_ITS | Encounter Summary ---
Author Organization [employer] [facility] Address [address] [place] [address] Care Team Providers Care Stockroom Worker Name Role Phone Unavailable Primary Care Provider Unavailabl e Encounter Details Date Type Department Care Team (Latest Contact Info) Description 06/28/1999 Outpatient Historical HIS [facility] Yahir Clements, Johan Scott MD [address] [place] [address] Bronchitis, not specified as acute or chronic (Primary Dx) Social History Tobacco Use Types Packs/Day Years Used Date Smoking Tobacco: Never Assessed Comments Unknown Sex and Gender Information Value Date Recorded Sex Assigned at Not on file 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
--- OUTSIDE RECORDS SUMMARY | 2025-10-12 22:21 | XMS_ITS | Encounter Summary ---
Author Organization [facility] Address [address] [place] [address] Care Team Providers Care Gas Shovel Operator Name Role Phone Unavailable Primary Care Provider Unavailabl e Encounter Details Date Type Department Care Team (Latest Contact Info) Description 01/09/2001 Outpatient Historical HIS [facility] Jamari Thomason MD [address] [place] [address] Urinary tract infection, site not specified (Primary Dx) Social History Tobacco Use Types Packs/Day Years Used Date Smoking Tobacco: Never Assessed Comments Unknown Sex and Gender Information Value Date Recorded Sex Assigned at Not on file Legal Sex Female 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
[2025-10-12 22:24] VITALS: BP 134/89; PULSE 97; RESP 16; TEMP 36.8; O2SAT 96; BMI 35.5
[2025-10-13 00:36] LABS: Hematocrit 40.1 % (36-47); Hemoglobin 13.40 g/dL (11.27-16.99); Mean Corpuscular HGB Conc 33.4 g/dL (30-55); Mean Corpuscular Hemoglobin 31.2 pg (27-33); Mean Corpuscular Volume 93.5 fl (85-98); Nucleated Red Blood Cells % 0 %; Platelet Count 236 10^3/cmm (157-399); Red Blood Count 4.29 10^6/uL (3.85-5.65); White Blood Count 14.94 10^3/uL (3.29-11.43)
[2025-10-13 00:39] LABS: Alanine Aminotransferase 12 U/L (0-33); Albumin Level 4.1 g/dL (3.5-5.2); Alkaline Phosphatase 86 U/L (35-105); Anion Gap 15.9 (5-19); Aspartate Amino Transferase 17 U/L (0-32); Blood Urea Nitrogen 6 mg/dL (6-20); Calcium 8.9 mg/dL (8.5-10.5); Carbon Dioxide 23 mmol/L (22-29); Chloride 103 mmol/L (98-107); Globulin 3.0 g/dL (1.3-4.6); Glucose 109 mg/dL (65-115); Lipase 33 U/L (13-60); Osmolality Calculated 284 mOsm/kg (285-295); Potassium 3.9 mmol/L (3.5-5.1); Sodium 138 mmol/L (136-145); Total Protein 7.1 g/dL (6.6-8.7)
[2025-10-13 03:10] LABS: Add Urine Microscopic? NO
[2025-10-13 03:11] LABS: Glucose Urine UA Negative (Normal); Nitrate Urine Positive (Negative); Specific Gravity, Urine 1.024 (1.005-1.030)
[2025-10-13 03:15] LABS: Charge for UA Resulting for Rev
[2025-10-13 03:17] LABS: Universal Test for UA Present (0)
--- NOTE | 2025-10-13 03:17 | W.ED.GENADLT ---
HPI - General Adult General: Chief complaint: Abdominal Pain Stated complaint: n/v unknown gestation Time Seen by Provider: 10/13/25 03:04 History of Present Illness: 25yo F at 16w1d of by previous US w/cc of low abdominal discomfort, nausea, vomiting for 1 day. Since she was seen in the emergency department, she has not had any care due to lack of transportation. Patient denies fever, shortness of breath, chest pain or syncope. She reports nausea and vomiting. Patient denies dysuria but reports increased frequency. She reports low back pain. Patient denies pelvic pain, abnormal vaginal discharge, pain with intercourse or new sexual partners. She states she has been with her boyfriend for the past 3 years and does not have a concern for STIs. Patient reports diarrhea but no blood in stool. She does not have any history of abdominal surgeries. She does not take any medications aside from vitamins. She arrived per EMS, received zofran en route, is feeling much better. Related Data Previous Rx's ?Medication ?Instructions ?Recorded chlorhexidine gluconate 0.12 % 15 ml buccal BID #1,893 mL 10/04/25 mouthwash clindamycin HCl 300 mg capsule 300 mg PO Q6H 10 days #40 caps 10/04/25 (Cleocin HCl) cephalexin 500 mg capsule 500 mg PO BID 7 days #14 caps 10/13/25 Allergies Allergy/AdvReac Type Severity Reaction Status Date / Time fluoxetine (From Prozac) Allergy ALGY-Difficulty Verified 10/12/25 22:40 Breathing Penicillins Allergy Unconscious Verified 10/12/25 22:40 [facility] PFSH: Medical History (Updated 10/13/25 @ 05:28 by Violeta Taylor MD) No pertinent past medical history Family History (Updated 08/27/25 @ 13:51 by Deep Haskins LPN) Mother Cancer Social History Smoking and tobacco/nicotine status: never used tobacco/nicotine Physical Exam Narrative: EXAM NARRATIVE: Vital signs were reviewed. Patient is alert and oriented. Patient is breathing comfortably, no increased WOB or accessory muscle use. SpO2 is above 95% on RA. Patient has clear lungs b/l, no rhonchi, wheezing or crackles. No hypotension or tachycardia. Abdomen is soft, nondistended. Negative Penn's sign. There is low abd tenderness but no maximal tenderness in the RLQ. She reports most tenderness in the suprapubic region and LLQ. BSUS shows IUP w/ HR appreciated. No CVA tenderness w/percussion of the flanks. Patient is moving all extremities, no deformity or gross injury. No lower extremity edema or asymmetry. Course Vital Signs: Vital signs: Vital Signs Temperature 98.2 F 10/12/25 22:24 Pulse Rate 97 10/12/25 22:24 Respiratory Rate 16 10/12/25 22:24 Blood Pressure 134/89 10/12/25 22:24 Pulse Oximetry 96 10/12/25 22:24 Oxygen Delivery Me thod Room Air 10/12/25 22:24 MDM - General Adult Medical Decision Making 25yo F at 16w1d of gestation w/cc of low abd pain, n/v, low back pain, increased urinary frequency. Differential diagnosis includes, but is not limited to, urinary tract infection, pyelonephritis, cervicitis, appendicitis, cholecystitis, pancreatitis, morning sickness, hyperemesis gravidarum, dehydration, other. On exam patient is hemodynamically stable nontoxic-appearing. Patient was evaluate CBC, CMP, lipase, UA, chlamydia and gonorrhea screen, transvaginal ultrasound. She was treated w/IV reglan and IV fluids. On reassessment, pain has resolved, nausea has also improved. On reassessment, she continues to have a benign and nontender abdomen. Patient has a normal white blood cell count but is not anemic. She does not have any actionable electrolyte abnormalities. She has normal kidney function, liver function and lipase. UA is consistent with urinary tract infection for which patient was treated with IV ceftriaxone. Patient wished to defer OB US at this time. She states she is feeling much better and wishes to go home which is reasonable given that UTI explains her symptoms. Patient was counseled on supportive care at home, given return precautions and discharged in stable condition with recommendation for outpatient follow-up with primary care nurse or doctor. Lab Data 10/12/25 00:03 10/12/25 00:03 Laboratory Results WBC 14.94 10^3/uL (3.29-11.43) H 10/12/25 00:03 RBC 4.29 10^6/uL (3.85-5.65) 10/12/25 00:03 Hgb 13.40 g/dL (11.27-16.99) 10/12/25 00:03 Hct 40.1 % (36-47) 10/12/25 00:03 MCV 93.5 fl (85-98) 10/12/25 00:03 MCH 31.2 pg (27-33) 10/12/25 00:03 MCHC 33.4 g/dL (30-55) 10/12/25 00:03 RDW 13.2 % (12.1-15.1) 10/12/25 00:03 Plt Count 236 10^3/cmm (157-399) 10/12/25 00:03 MPV 10.0 fL (7.4-10.4) 10/12/25 00:03 Neut % (Auto) 89.5 % 10/12/25 00:03 Lymph % (Auto) 5.6 % 10/12/25 00:03 Becker % (Auto) 3.8 % 10/12/25 00:03 Eos % (Auto) 0.2 % 10/12/25 00:03 Baso % (Auto) 0.2 % 10/12/25 00:03 Neut # (Auto) 13.38 10^3/uL (1.8-7.7) H 10/12/25 00:03 Lymph # (Auto) 0.8 10^3/uL (0.8-4.8) 10/12/25 00:03 Becker # (Auto) 0.6 10^3/uL (0.2-0.9) 10/12/25 00:03 Eos # (Auto) 0.0 10^3/uL (0.0-0.8) 10/12/25 00:03 Baso # (Auto) 0.0 10^3/uL (0.0-0.1) 10/12/25 00:03 Nucleated RBC % (auto) 0 % 10/12/25 00:03 Nucleated RBCs # 0.0 /100WBC 10/12/25 00:03 Sodium 138 mmol/L (136-145) 10/12/25 00:03 Potassium 3.9 mmol/L (3.5-5.1) 10/12/25 00:03 Chloride 103 mmol/L (98-107) 10/12/25 00:03 Carbon Dioxide 23 mmol/L (22-29) 10/12/25 00:03 Anion Gap 15.9 (5-19) 10/12/25 00:03 BUN 6 mg/dL (6-20) 10/12/25 00:03 Creatinine 0.5 mg/dL (0.5-0.9) 10/12/25 00:03 GFR Calculation 148.0 mL/min (90-130) H 10/12/25 00:03 Glucose 109 mg/dL (65-115) 10/12/25 00:03 Calculated Osmolality 284 mOsm/kg (285-295) L 10/12/25 00:03 Calcium 8.9 mg/dL (8.5-10.5) 10/12/25 00:03 Total Bilirubin 0.4 mg/dL (0.15-1.2) 10/12/25 00:03 AST 17 U/L (0-32) 10/12/25 00:03 ALT 12 U/L (0-33) 10/12/25 00:03 Alkaline Phosphatase 86 U/L (35-105) 10/12/25 00:03 Total Protein 7.1 g/dL (6.6-8.7) 10/12/25 00:03 Albumin 4.1 g/dL (3.5-5.2) 10/12/25 00:03 Globulin 3.0 g/dL (1.3-4.6) 10/12/25 00:03 Lipase 33 U/L (13-60) 10/12/25 00:03 Ser , Semi-Qnt 56384.00 mIU/mL 10/13/25 00:03 Urine Color Dark yellow (Yellow) A 10/13/25 03:01 Urine Appearance Cloudy (CLEAR) A 10/13/25 03:01 Urine pH 5.5 (5-7) 10/13/25 03:01 Ur Specific Jenks 1.024 (1.005-1.030) 10/13/25 03:01 Urine Protein 2+ (Negative) A 10/13/25 03:01 Urine Glucose (UA) Negative (Normal) 10/13/25 03:01 Urine Ketones Trace (Negative) 10/13/25 03:01 Urine Blood Negative (Negative) 10/13/25 03:01 Urine Nitrate Positive (Negative) A 10/13/25 03:01 Urine Bilirubin Negative (Negative) 10/13/25 03:01 Urine Urobilinogen 1.0 mg/dL (Negative) 10/13/25 03:01 Ur Leukocyte Esterase 1+ (Negative) A 10/13/25 03:01 Urine RBC 3-5 /hpf (0-2) 10/13/25 03:01 Urine WBC 51-100 /hpf (0-5) H 10/13/25 03:01 Ur Squamous Epith Cells 25-40 /hpf (0-5) H 10/13/25 03:01 Amorphous Sediment Not Reportable 10/13/25 03:01 Urine Bacteria 4+ /hpf (NONE) H 10/13/25 03:01 Hyaline Casts 21.08 /lpf 10/13/25 03:01 No radiology studies performed this visit Discharge Plan Discharge Patient Disposition: Home Clinical Impression: Urinary tract infection affecting Nausea & vomiting Qualifiers: Vomiting type: unspecified Qualified Code(s): R11.2 - Nausea with vomiting, unspecified Condition: Stable Prescriptions: New cephalexin 500 mg capsule 500 mg PO BID 7 Days Qty: 14 0RF No Action chlorhexidine gluconate 0.12 % mouthwash 15 ml buccal BID Qty: 1893 0RF clindamycin HCl [Cleocin HCl] 300 mg capsule 300 mg PO Q6H 10 Days Qty: 40 0RF Discharge Orders: Discharge ED (Routine); Ordered 10/13/25 Ordered By: Violeta Taylor Patient Instructions: Abdominal Pain (ED), Opioid Safety, Pain Management, Patient Portal & Dali Instructions, Urinary Tract Infection in (ED) Activity Restrictions/Additional Instructions: You may take Tylenol for pain and fever. Please start taking your antibiotics as prescribed. For nausea and vomiting in , you may take 25 mg of doxylamine in combination with 25 mg of vitamin B6 at bedtime. Continue to stay hydrated. If your condition worsens or additional concerns arise, please return to the emergency department for reassessment. Please follow-up with women's health or [facility] clinic for routine care. Print Language: Latvian Coding Level of Care Code ED Able Bodied Watchman for Tamar Little
[2025-10-13] MEDS: metoclopramide 5 mg/mL SDV 2 mL 10 MG IVP (03:55)
[2025-10-13] MEDS: cefTRIAXone 1,000 mg SDV 1000 MG IVP (04:36)
[2025-10-13 05:52] LABS: Trichomonas vaginalis (PCR) NOT DETECTED (Negative)
[2025-10-13 05:53] LABS: Neisseria Gonorrhea NOT DETECTED (Negative)
== END 2025-10-13 05:56 | disposition home or self-care (01) ==
PROVIDERS: Physician Assistant; Emergency Provider Emergency Medicine
DX: O23.42 Unspecified infection of urinary tract in pregnancy, second trimester (principal); N39.0 Urinary tract infection, site not specified; Z3A.16 16 weeks gestation of pregnancy; O21.9 Vomiting of pregnancy, unspecified
CPT/HCPCS: 36415; 80053; 81003; 83690; 84702; 85025; 87491; 87591; 87661; 96361; 96374; 96375; 99284; J0696; J2765; J7030